=== PATIENT | male | born 1985 | race African-American/Black ===

== ENCOUNTER 2020-02-21 16:14 | Emergency (ER) | payer MEDICAID ==
[~2020-02-21] VITALS: Ht 177.8 cm; Wt 77.1 kg
[~2020-02-21 16:14] MED LIST: ASPI-247
[2020-02-21] MEDS ORDERED: ASPirin 81 mg TAB PO ONE (16:30)
[2020-02-21] MEDS ORDERED: ONDANSETRON HCL 4 MG/2 ML VIAL IV ONE ×2 (16:30→20:30)
[2020-02-21] MEDS ORDERED: MORPHINE SULFATE 4 MG/ML SYR/VIAL IV ONE ×2 (16:30→20:30)
[2020-02-21 17:22] LABS: Basophils # (auto) 0 10 ^3/uL (0-0.2); Basophils % (auto) 0.7 % (0.0-2.0); Eosinophils # (auto) 0 10 ^3/uL (0-0.8); Eosinophils % (auto) 0.2 % (0.0-7.0); Hemoglobin 14.1 g/dL (13.5-17.5); Lymphocytes # (auto) 1.1 10 ^3/uL (0.4-5.4); Lymphocytes % (auto) 24.3 % (10.0-50.0); Mean Corpuscular Hemoglobin 29.2 pg (28.0-32.0); Mean Corpuscular Hgb Conc. 32.8 g/dL (32.0-36.0); Mean Corpuscular Volume 89.1 fL (80.0-100.0); Monocytes # (auto) 0.5 10 ^3/uL (0-1.3); Monocytes % (auto) 11.9 % (0.0-12.0); Neutrophils # (auto) 2.8 10 ^3/uL (1.6-8.6); Neutrophils % (auto) 62.9 % (37.0-80.0); Nucleated Red Blood Cells % 0.1 %; Platelet Count (auto) 190 10^3/uL (140-450); Red Blood Cells 4.83 10^6/uL (4.5-5.90); Red Cell Distribution Width 13.6 % (11.8-14.3); White Blood Cell 4.5 10^3/uL (4.4-10.8)
[2020-02-21 17:37] LABS: INR 1.13 (0.9-1.15); Partial Thromboplastin Time 25.4 sec (23.64-32.05)
[2020-02-21 17:41] LABS: Albumin 4.1 g/dL (3.4-5.0); Anion Gap 6 (5-15); Blood Urea Nitrogen 5 mg/dL (7-18); Calcium 8.6 mg/dL (8.5-10.1); Carbon Dioxide 26 mmol/L (21-32); Chloride 104 mmol/L (98-107); Glucose 122 mg/dL (74-106); Potassium 3.3 mmol/L (3.5-5.1); Sodium 136 mmol/L (136-145)
[2020-02-21 17:47] LABS: Alanine Aminotransferase 13 U/L (16-61); Alkaline Phosphatase 65 U/L (45-117); Aspartate Aminotransferase 9 U/L (15-37); Bilirubin, Total 0.8 mg/dL (0.2-1.0); GFR African American 111 mL/min; GFR Non-African American 92 mL/min; Total Protein 7.5 g/dL (6.4-8.2)
[2020-02-21] MEDS ORDERED: IOHEXOL 350 MG/ML 100ML IJ ONE (17:59)
[2020-02-21] MEDS ORDERED: HYDROmorphone HCL 2 MG/ML VL IV ONE (18:00)
[2020-02-21] MEDS ORDERED: SODIUM CHLORIDE 0.9% 1,000 ML IV ONE (18:12)
[2020-02-21] MEDS ORDERED: POTASSIUM CHL 20MEQ/100ML 100 ML IV ONE (18:15)
[2020-02-21 20:16] LABS: Urine WBC None Seen /hpf (0 - 3)
[2020-02-21 20:59] LABS: Urine Bacteria NONE SEEN /hpf (None Seen); Urine Blood Negative /uL (Negative); Urine Specific Gravity > 1.050 (1.001-1.035)
[2020-02-21 21:00] LABS: Alcohol, Urine < 3.0 mg/dL (0-10); Amphetamine Screen, Urine NEGATIVE (NEGATIVE); Barbiturate Scree,Urine NEGATIVE (NEGATIVE); Benzodiazephine Screen, Urine NEGATIVE (NEGATIVE); Cannabinoid Screen, Urine NEGATIVE (NEGATIVE); Cocaine Screen, Urine NEGATIVE (NEGATIVE); Opiate Scree,Urine POSITIVE (NEGATIVE); Phencyclidine Screen, Urine NEGATIVE (NEGATIVE)
[2020-02-21] MEDS ORDERED: LORazepam 0.5 MG TAB PO ONE (23:30)
[2020-02-21] MEDS ORDERED: LORazepam 2MG/ML-1ML VIAL IV ONE (23:45)
[2020-02-22] MEDS ORDERED: LORazepam 0.5 MG TAB PO ONE ×2 (09:45→18:45)
[2020-02-22] MEDS: ASPirin 81 mg TAB PO SCH (10:17)
[2020-02-22] MEDS ORDERED: KETOROLAC TROMETH 30 MG/ML 1ML VIAL IV ONE (14:15)
[2020-02-22] MEDS: ACETAMINOPHEN 325 MG TAB PO PRN (22:03)
[2020-02-23] MEDS: ACETAMINOPHEN 325 MG TAB PO PRN (08:10)
[2020-02-23] MEDS: ASPirin 81 mg TAB PO SCH (09:36)
[2020-02-23] MEDS ORDERED: LORazepam 2MG/ML-1ML VIAL IV ONE ×2 (12:30→20:00)
[2020-02-23] MEDS ORDERED: KETOROLAC TROMETH 30 MG/ML 1ML VIAL IV ONE (12:30)
[2020-02-23] MEDS ORDERED: OLANZapine 5 MG TAB PO ONE (12:30)
[2020-02-24] MEDS ORDERED: ZOLPIDEM TARTRATE 5 MG TAB PO ONE (02:45)
[2020-02-24] MEDS ORDERED: LORazepam 2MG/ML-1ML VIAL IV ONE (08:15)
[2020-02-24] MEDS: ACETAMINOPHEN 325 MG TAB PO PRN (10:40)
[2020-02-24] MEDS: ASPirin 81 mg TAB PO SCH (10:40)
[2020-02-24] MEDS ORDERED: LORazepam 0.5 MG TAB PO ONE ×2 (10:45→15:00)
[2020-02-24] MEDS ORDERED: LORazepam 0.5 MG TAB PO PRN (15:00)
[2020-02-24 19:30] VITALS: BP 142/74
== END 2020-02-24 20:15 ==
LOC: ER 16:14 → EDBD 16:14 → ER 02-24 20:15
DX: R07.89 Other chest pain (principal); R45.851 Suicidal ideations; E87.6 Hypokalemia; F41.9 Anxiety disorder, unspecified; Z91.19 Patient's noncompliance with other medical treatment and regimen; G89.4 Chronic pain syndrome; F11.20 Opioid dependence, uncomplicated
CPT/HCPCS: 36415; 71045; 71260; 74177; 80053; 80307; 80320; 81001; 83880; 84443; 84484; 85025; 85610; 85730; 93005; 96365; 96366; 96375; 96376; 99285; J1170; J1885; J2060; J2270; J2405; J3480; J7030; U0003

== ENCOUNTER 2020-05-28 11:49 | Inpatient (IN) | payer MEDICAID ==
[~2020-05-28] VITALS: Ht 175.3 cm; Wt 84.0 kg
[2020-05-28] MEDS ORDERED: ASPirin 81 mg TAB PO ONE ×2 (12:30→13:15)
[2020-05-28] MEDS ORDERED: SODIUM CHLORIDE 0.9% 1,000 ML IV ONE (13:06)
[2020-05-28] MEDS ORDERED: ONDANSETRON HCL 4 MG/2 ML VIAL IV ONE (13:15)
[2020-05-28] MEDS ORDERED: NITROGLYCERIN 0.4 MG SL TAB SL ONE (13:15)
[2020-05-28] MEDS ORDERED: MORPHINE SULFATE 4 MG/ML SYR/VIAL IV ONE (13:15)
[2020-05-28 13:45] LABS: Basophils # (auto) 0 10 ^3/uL (0-0.2); Eosinophils # (auto) 0 10 ^3/uL (0-0.8); Eosinophils % (auto) 0.1 % (0.0-7.0); Hematocrit 44.7 % (41.0-53.0); Hemoglobin 14.6 g/dL (13.5-17.5); Lymphocytes % (auto) 30.2 % (10.0-50.0); Mean Corpuscular Hemoglobin 29.2 pg (28.0-32.0); Mean Corpuscular Hgb Conc. 32.6 g/dL (32.0-36.0); Mean Corpuscular Volume 89.6 fL (80.0-100.0); Monocytes # (auto) 0.4 10 ^3/uL (0-1.3); Monocytes % (auto) 11.7 % (0.0-12.0); Neutrophils # (auto) 1.8 10 ^3/uL (1.6-8.6); Nucleated Red Blood Cells % 0.1 %; Platelet Count (auto) 192 10^3/uL (140-450); Red Blood Cells 4.99 10^6/uL (4.5-5.90); Red Cell Distribution Width 14.1 % (11.8-14.3); White Blood Cell 3.2 10^3/uL (4.4-10.8)
[2020-05-28 13:59] LABS: INR 1.19 (0.9-1.15); Partial Thromboplastin Time 29.5 sec (23.0-31.2)
[2020-05-28 14:01] LABS: Anion Gap 6 (5-15); Blood Urea Nitrogen 9 mg/dL (7-18); Calcium 8.7 mg/dL (8.5-10.1); Carbon Dioxide 28 mmol/L (21-32); Chloride 106 mmol/L (98-107); Glucose 61 mg/dL (74-106); Potassium 3.8 mmol/L (3.5-5.1); Sodium 140 mmol/L (136-145)
[2020-05-28 14:06] LABS: Alanine Aminotransferase 14 U/L (16-61); Alkaline Phosphatase 95 U/L (45-117); Aspartate Aminotransferase 13 U/L (15-37); BUN/Creatinine Ratio 9.6; Bilirubin, Total 0.7 mg/dL (0.2-1.0); GFR African American 120 mL/min; GFR Non-African American 99 mL/min; Total Protein 7.7 g/dL (6.4-8.2)
[2020-05-28 14:17] LABS: Urine Bacteria NONE SEEN /hpf (None Seen); Urine Blood Negative /uL (Negative); Urine Specific Gravity 1.008 (1.001-1.035); Urine WBC <1 /hpf (0 - 3)
[2020-05-28 14:32] LABS: Alcohol, Urine < 3.0 mg/dL (0-10); Amphetamine Screen, Urine NEGATIVE (NEGATIVE); Barbiturate Scree,Urine NEGATIVE (NEGATIVE); Benzodiazephine Screen, Urine NEGATIVE (NEGATIVE); Cannabinoid Screen, Urine NEGATIVE (NEGATIVE); Cocaine Screen, Urine NEGATIVE (NEGATIVE); Opiate Scree,Urine NEGATIVE (NEGATIVE); Phencyclidine Screen, Urine NEGATIVE (NEGATIVE)
[2020-05-28] MEDS ORDERED: IOHEXOL 350 MG/ML 100ML IJ ONE ×2 (14:37→20:38)
[2020-05-28] MEDS ORDERED: HYDROcodone-ACET 10/325MG TAB PO PRN (16:45)
[2020-05-28] MEDS ORDERED: NITROGLYCERIN 0.4 MG SL TAB SL PRN (16:45)
[2020-05-28] MEDS ORDERED: REGADENOSON 0.4 MG/5 ML SYRG IV ONE (18:00)
[2020-05-28] MEDS: MORPHINE SULF INJ 2 MG/ML SYRINGE 1ML IV PRN ×3 (20:04→22:13)
[2020-05-28] MEDS: ONDANSETRON HCL 4 MG/2 ML VIAL IV PRN (20:04)
[2020-05-28 20:21] LABS: Cholesterol 146 mg/dL (< 200); HDL Cholesterol 37 mg/dL (40-59); LDL Cholesterol 93 mg/dL (< 100); Triglycerides 115 mg/dL (< 150)
--- NOTE | 2020-05-28 23:45 | NUR ---
Telemetry admit from [facility] admitted to Telemetry unit after SBAR received. Patient oriented to Oli grier RN, unit, room 214, bed B, and unit policies regarding patient care and visiting hours. Patient now on continuous telemetry monitoring, tele box #42 and telemetry reading on arrival to unit is SR 65. Patient VS taken, weighed by bedscale and encouraged to call if they need something. All questions and concerns addressed, patient verbalized understanding.
[2020-05-28 23:47] VITALS: BP 134/77
[2020-05-29 00:06] VITALS: BP 134/77
[2020-05-29] MEDS: MORPHINE SULF INJ 2 MG/ML SYRINGE 1ML IV PRN ×2 (03:32→07:17)
[2020-05-29 05:30] VITALS: BP 127/92
[2020-05-29] MEDS ORDERED: ADENOSINE 71 MG in GIVE UN-DILUTED 0 ML IV STA (08:09)
--- NOTE | 2020-05-29 08:20 | NUR ---
Pt taken to stress lab for stress test.
[2020-05-29 09:00] VITALS: BP 119/71
[2020-05-29] MEDS: ONDANSETRON HCL 4 MG/2 ML VIAL IV PRN (09:18)
--- NOTE | 2020-05-29 09:18 | NUR ---
Notified by nuclear medicine patient is having nausea and vomiting. Reviewed patient eMar and pulled Zofran as ordered and administered to patient. Called primary RN Grace and notified her of patients condition and the medication given.
[2020-05-29 17:00] VITALS: BP 117/75
[2020-05-29] MEDS ORDERED: ACETAMINOPHEN 325 MG TAB PO PRN (17:15)
--- NOTE | 2020-05-29 17:34 | NUR ---
Pain Pt reported headache 02/01, pt refused norco or morphine, pt requested Tylenol, pt medicated as order, will continue to monitor pt.
[2020-05-29] MEDS ORDERED: ACETAMINOPHEN 500 MG TAB PO PRN (18:15)
--- NOTE | 2020-05-29 19:30 | NUR ---
PATIENT LEFT AMA CHARGE NURSE AND DR PINO INFORMED. IV CATHERS REMOVED FROM RIGHT FOREARM AND LEFT FOREARM. TELE BOX REMOVED AND BULLETED TO TELE MONITOR TECHS.
== END 2020-05-29 19:30 | disposition left against medical advice (07) | DRG 203 ==
LOC: ER 11:49 → TELE 11:50 → TELE-CENTR 23:13
PROVIDERS: ADMIT Internal Medicine; ATTEND Internal Medicine
DX: M94.0 Chondrocostal junction syndrome [Tietze] (principal); I10 Essential (primary) hypertension; F17.210 Nicotine dependence, cigarettes, uncomplicated; F12.90 Cannabis use, unspecified, uncomplicated; I72.3 Aneurysm of iliac artery; Z53.29 Procedure and treatment not carried out because of patient's decision for other reasons; K80.20 Calculus of gallbladder without cholecystitis without obstruction; Z86.79 Personal history of other diseases of the circulatory system; Z79.899 Other long term (current) drug therapy
CPT/HCPCS: 36415; 71046; 71275; 74177; 78452; 80053; 80061; 80307; 81001; 84443; 84484; 85025; 85610; 85730; 93005; 93017; 93306; G0378; J0153; J2405

== ENCOUNTER 2021-02-15 16:06 | Emergency (ER) | payer MEDICAID ==
[~2021-02-15] VITALS: Ht 175.3 cm; Wt 90.3 kg
[2021-02-15 16:09] VITALS: BP 142/89
[2021-02-15 16:56] LABS: Urine Bacteria NONE SEEN /hpf (None Seen); Urine Blood Negative /uL (Negative); Urine Specific Gravity 1.006 (1.001-1.035); Urine WBC <1 /hpf (0 - 3)
== END 2021-02-15 23:52 | disposition home or self-care (01) ==
LOC: ER 16:06
DX: F41.9 Anxiety disorder, unspecified (principal); K21.9 Gastro-esophageal reflux disease without esophagitis; M54.2 Cervicalgia; F17.210 Nicotine dependence, cigarettes, uncomplicated; I10 Essential (primary) hypertension; Z90.49 Acquired absence of other specified parts of digestive tract
CPT/HCPCS: 70360; 71046; 81001

== ENCOUNTER 2021-04-17 19:57 | Emergency (ER) | payer MEDICAID ==
[~2021-04-17] VITALS: Ht 175.3 cm; Wt 86.2 kg
[2021-04-17 19:57] VITALS: BP 130/83
== END 2021-04-18 02:50 | disposition left against medical advice (07) ==
LOC: ER 19:57
DX: R07.89 Other chest pain (principal); Z53.21 Procedure and treatment not carried out due to patient leaving prior to being seen by health care provider
CPT/HCPCS: 71045; 93005

== ENCOUNTER 2021-05-02 18:41 | Emergency (ER) | payer MEDICAID ==
[~2021-05-02] VITALS: Ht 175.3 cm; Wt 86.2 kg
[2021-05-02 18:41] VITALS: BP 138/83
[2021-05-02 20:19] LABS: Basophils # (auto) 0 10 ^3/uL (0-0.2); Basophils % (auto) 0.2 % (0.0-2.0); Eosinophils # (auto) 0 10 ^3/uL (0-0.8); Eosinophils % (auto) 0.1 % (0.0-7.0); Hematocrit 44.9 % (41.0-53.0); Hemoglobin 15.1 g/dL (13.5-17.5); Lymphocytes # (auto) 1.1 10 ^3/uL (0.4-5.4); Lymphocytes % (auto) 26.2 % (10.0-50.0); Mean Corpuscular Hemoglobin 29.8 pg (28.0-32.0); Mean Corpuscular Hgb Conc. 33.7 g/dL (32.0-36.0); Mean Corpuscular Volume 88.4 fL (80.0-100.0); Monocytes # (auto) 0.4 10 ^3/uL (0-1.3); Monocytes % (auto) 8.9 % (0.0-12.0); Neutrophils # (auto) 2.8 10 ^3/uL (1.6-8.6); Neutrophils % (auto) 64.6 % (37.0-80.0); Red Blood Cells 5.08 10^6/uL (4.5-5.90); Red Cell Distribution Width 14.5 % (11.8-14.3); White Blood Cell 4.3 10^3/uL (4.4-10.8)
[2021-05-02 20:44] LABS: Albumin 3.7 g/dL (3.4-5.0); Anion Gap 3 (5-15); Blood Urea Nitrogen 14 mg/dL (7-18); Calcium 8.7 mg/dL (8.5-10.1); Carbon Dioxide 28 mmol/L (21-32); Chloride 107 mmol/L (98-107); Glucose 91 mg/dL (74-106); Potassium 3.7 mmol/L (3.5-5.1); Sodium 138 mmol/L (136-145)
[2021-05-02 20:50] LABS: Alanine Aminotransferase 17 U/L (16-61); Alkaline Phosphatase 84 U/L (45-117); Aspartate Aminotransferase 18 U/L (15-37); Bilirubin, Total 0.6 mg/dL (0.2-1.0); GFR African American 111 mL/min; GFR Non-African American 91 mL/min; Total Protein 7.6 g/dL (6.4-8.2)
== END 2021-05-02 18:50 | disposition left against medical advice (07) ==
LOC: ER 18:45
DX: R07.89 Other chest pain (principal); I10 Essential (primary) hypertension; F12.10 Cannabis abuse, uncomplicated; F14.10 Cocaine abuse, uncomplicated; Z86.73 Personal history of transient ischemic attack (TIA), and cerebral infarction without residual deficits; Z98.61 Coronary angioplasty status; Z53.29 Procedure and treatment not carried out because of patient's decision for other reasons
CPT/HCPCS: 36415; 71045; 80053; 83880; 84484; 85025; 93005

== ENCOUNTER 2021-05-22 19:38 | Emergency (ER) | payer MEDICAID ==
[~2021-05-22] VITALS: Ht 175.3 cm; Wt 81.6 kg
[2021-05-22 20:58] LABS: Basophils # (auto) 0 10 ^3/uL (0-0.2); Basophils % (auto) 0.6 % (0.0-2.0); Eosinophils # (auto) 0 10 ^3/uL (0-0.8); Eosinophils % (auto) 0.2 % (0.0-7.0); Hematocrit 46.1 % (41.0-53.0); Hemoglobin 15.4 g/dL (13.5-17.5); Lymphocytes # (auto) 0.7 10 ^3/uL (0.4-5.4); Lymphocytes % (auto) 13.6 % (10.0-50.0); Mean Corpuscular Hemoglobin 29.7 pg (28.0-32.0); Mean Corpuscular Hgb Conc. 33.5 g/dL (32.0-36.0); Mean Corpuscular Volume 88.7 fL (80.0-100.0); Monocytes # (auto) 0.4 10 ^3/uL (0-1.3); Monocytes % (auto) 7.1 % (0.0-12.0); Neutrophils % (auto) 78.5 % (37.0-80.0); Nucleated Red Blood Cells % 0.1 %; Red Cell Distribution Width 14.1 % (11.8-14.3); White Blood Cell 5.2 10^3/uL (4.4-10.8)
[2021-05-22 21:13] LABS: Albumin 3.9 g/dL (3.4-5.0); Anion Gap 6 (5-15); Blood Urea Nitrogen 10 mg/dL (7-18); Calcium 9.3 mg/dL (8.5-10.1); Carbon Dioxide 28 mmol/L (21-32); Chloride 103 mmol/L (98-107); Glucose 79 mg/dL (74-106); Potassium 3.8 mmol/L (3.5-5.1); Sodium 137 mmol/L (136-145)
[2021-05-22 21:16] LABS: Alanine Aminotransferase 18 U/L (16-61); Alkaline Phosphatase 102 U/L (45-117); Aspartate Aminotransferase 16 U/L (15-37); Bilirubin, Total 0.6 mg/dL (0.2-1.0); GFR African American 111 mL/min; GFR Non-African American 91 mL/min; Total Protein 7.8 g/dL (6.4-8.2)
[2021-05-23 02:50] VITALS: BP 142/78
== END 2021-05-23 03:59 | disposition home or self-care (01) ==
LOC: ER 19:38
DX: R07.89 Other chest pain (principal); K80.20 Calculus of gallbladder without cholecystitis without obstruction; I10 Essential (primary) hypertension; I25.10 Atherosclerotic heart disease of native coronary artery without angina pectoris; Z98.890 Other specified postprocedural states; Z95.4 Presence of other heart-valve replacement
CPT/HCPCS: 36415; 71045; 80053; 83880; 84484; 85025; 93005

== ENCOUNTER 2021-08-06 21:12 | Emergency (ER) | payer MEDICAID ==
[~2021-08-06] VITALS: Ht 175.3 cm; Wt 87.5 kg
[2021-08-06] MEDS ORDERED: ASPirin 81 mg TAB PO ONE (21:30)
[2021-08-06 22:57] LABS: Basophils # (auto) 0.1 10 ^3/uL (0-0.2); Basophils % (auto) 1.7 % (0.0-2.0); Eosinophils # (auto) 0.3 10 ^3/uL (0-0.8); Eosinophils % (auto) 6.6 % (0.0-7.0); Hematocrit 43.4 % (41.0-53.0); Hemoglobin 14.1 g/dL (13.5-17.5); Lymphocytes # (auto) 0.4 10 ^3/uL (0.4-5.4); Lymphocytes % (auto) 8.9 % (10.0-50.0); Mean Corpuscular Hgb Conc. 32.6 g/dL (32.0-36.0); Mean Corpuscular Volume 88.9 fL (80.0-100.0); Monocytes # (auto) 0.2 10 ^3/uL (0-1.3); Monocytes % (auto) 4.4 % (0.0-12.0); Neutrophils # (auto) 3.5 10 ^3/uL (1.6-8.6); Neutrophils % (auto) 78.4 % (37.0-80.0); Nucleated Red Blood Cells % 0.1 %; Red Blood Cells 4.88 10^6/uL (4.5-5.90); Red Cell Distribution Width 14.2 % (11.8-14.3); White Blood Cell 4.4 10^3/uL (4.4-10.8)
[2021-08-06 23:15] LABS: Albumin 3.8 g/dL (3.4-5.0); BUN/Creatinine Ratio 13.7; Potassium 3.4 mmol/L (3.5-5.1)
[2021-08-06 23:20] LABS: Bilirubin, Total 0.6 mg/dL (0.2-1.0); Total Protein 7.5 g/dL (6.4-8.2)
[2021-08-07 02:00] VITALS: BP 131/89
[2021-08-07] MEDS: ACETAMINOPHEN 500 MG TAB PO ONE ×2 (02:16→02:18)
== END 2021-08-07 02:15 | disposition home or self-care (01) ==
LOC: ER 21:12
DX: R07.89 Other chest pain (principal); I10 Essential (primary) hypertension; I25.10 Atherosclerotic heart disease of native coronary artery without angina pectoris
CPT/HCPCS: 36415; 71046; 80053; 84484; 85025; 93005

== ENCOUNTER 2021-08-25 13:02 | Emergency (ER) | payer MEDICAID ==
[~2021-08-25] VITALS: Ht 175.3 cm; Wt 86.2 kg
[2021-08-25 13:08] VITALS: BP 128/90
[2021-08-25] MEDS ORDERED: ASPirin 81 mg TAB PO ONE (14:00)
[2021-08-25] MEDS ORDERED: SODIUM CHLORIDE 0.9% 1,000 ML IV ONE (14:00)
[2021-08-25 14:48] LABS: Basophils # (auto) 0 10 ^3/uL (0-0.2); Basophils % (auto) 0.2 % (0.0-2.0); Eosinophils # (auto) 0 10 ^3/uL (0-0.8); Eosinophils % (auto) 0.3 % (0.0-7.0); Hematocrit 43.2 % (41.0-53.0); Hemoglobin 14.1 g/dL (13.5-17.5); Lymphocytes # (auto) 0.9 10 ^3/uL (0.4-5.4); Lymphocytes % (auto) 31.9 % (10.0-50.0); Mean Corpuscular Hgb Conc. 32.7 g/dL (32.0-36.0); Mean Corpuscular Volume 88.7 fL (80.0-100.0); Monocytes # (auto) 0.3 10 ^3/uL (0-1.3); Neutrophils # (auto) 1.6 10 ^3/uL (1.6-8.6); Neutrophils % (auto) 56.6 % (37.0-80.0); Nucleated Red Blood Cells % 0.2 %; Red Blood Cells 4.87 10^6/uL (4.5-5.90); Red Cell Distribution Width 14.1 % (11.8-14.3); White Blood Cell 2.8 10^3/uL (4.4-10.8)
[2021-08-25 15:02] LABS: INR 1.03 (0.9-1.15); Partial Thromboplastin Time 27.1 sec (23.6-33.0)
[2021-08-25 15:08] LABS: Albumin 3.7 g/dL (3.4-5.0); Calcium 8.4 mg/dL (8.5-10.1); Magnesium 2.5 mg/dL (1.6-2.6); Potassium 3.9 mmol/L (3.5-5.1)
[2021-08-25 15:15] LABS: BUN/Creatinine Ratio 6.4; Bilirubin, Total 0.6 mg/dL (0.2-1.0); Total Protein 7.6 g/dL (6.4-8.2)
== END 2021-08-25 18:31 | disposition home or self-care (01) ==
LOC: ER 13:02
DX: R07.89 Other chest pain (principal); I25.10 Atherosclerotic heart disease of native coronary artery without angina pectoris; R79.1 Abnormal coagulation profile; I10 Essential (primary) hypertension
CPT/HCPCS: 36415; 71046; 80053; 83735; 84443; 84484; 85025; 85379; 85610; 85730; 93005; 93971

== ENCOUNTER 2021-12-06 10:19 | Emergency (ER) | payer MEDICAID ==
[~2021-12-06] VITALS: Ht 175.3 cm; Wt 72.6 kg
[2021-12-06] MEDS ORDERED: IOHEXOL 300 MG/ML 100ML BOTTLE IJ ONE (11:20)
[2021-12-06] MEDS ORDERED: IOHEXOL 350 MG/ML 100ML IJ ONE (11:32)
[2021-12-06] MEDS ORDERED: ONDANSETRON HCL 4 MG/2 ML VIAL IV ONE (11:45)
[2021-12-06] MEDS ORDERED: MORPHINE SULFATE 4 MG/ML SYR/VIAL IV ONE (11:45)
[2021-12-06 11:53] LABS: Basophils # (auto) 0 10 ^3/uL (0-0.2); Basophils % (auto) 0.2 % (0.0-2.0); Eosinophils # (auto) 0 10 ^3/uL (0-0.8); Eosinophils % (auto) 0.2 % (0.0-7.0); Hematocrit 42.1 % (41.0-53.0); Lymphocytes # (auto) 1.2 10 ^3/uL (0.4-5.4); Lymphocytes % (auto) 22.6 % (10.0-50.0); Mean Corpuscular Hemoglobin 29.6 pg (28.0-32.0); Mean Corpuscular Hgb Conc. 33.3 g/dL (32.0-36.0); Mean Corpuscular Volume 88.7 fL (80.0-100.0); Monocytes # (auto) 0.5 10 ^3/uL (0-1.3); Monocytes % (auto) 9.5 % (0.0-12.0); Neutrophils # (auto) 3.6 10 ^3/uL (1.6-8.6); Neutrophils % (auto) 67.5 % (37.0-80.0); Nucleated Red Blood Cells % 0.1 %; Red Blood Cells 4.74 10^6/uL (4.5-5.90); Red Cell Distribution Width 13.9 % (11.8-14.3); White Blood Cell 5.4 10^3/uL (4.4-10.8)
[2021-12-06 13:18] LABS: Albumin 3.9 g/dL (3.4-5.0); BUN/Creatinine Ratio 8.7; Calcium 9.1 mg/dL (8.5-10.1); Potassium 4.1 mmol/L (3.5-5.1)
[2021-12-06 13:23] LABS: Bilirubin, Total 0.6 mg/dL (0.2-1.0); Total Protein 7.3 g/dL (6.4-8.2)
[2021-12-06 14:00] VITALS: BP 98/51
[2021-12-06 14:37] LABS: INR 1.05 (0.9-1.15); Partial Thromboplastin Time 27.1 sec (23.6-33.0)
[2021-12-06] MEDS ORDERED: ENOXAPARIN SOD 80 MG/0.8ML SYRINGE SC ONE (17:00)
[2021-12-06] MEDS ORDERED: HYDROcodone-ACET 10/325MG TAB PO ONE (17:45)
== END 2021-12-06 17:45 | disposition home or self-care (01) ==
LOC: ER 10:19
DX: I72.3 Aneurysm of iliac artery (principal); F12.10 Cannabis abuse, uncomplicated; F14.10 Cocaine abuse, uncomplicated; I10 Essential (primary) hypertension
CPT/HCPCS: 36415; 71045; 74177; 80053; 84484; 85025; 85610; 85730; 93005; 96372; 96374; 96375; 99285; J1650; J2270; J2405; Q9967

== ENCOUNTER 2023-10-02 12:15 | Emergency (ER) | payer MEDICAID, OTHER ==
[~2023-10-02] VITALS: Ht 162.6 cm; Wt 83.4 kg
[2023-10-02] MEDS ORDERED: ACET30TA15 PO (14:46)
[2023-10-02] MEDS ORDERED: AMOX500T3 PO (14:46)
[2023-10-02 14:50] VITALS: BP 152/113; PULSE 95; RESP 18; TEMP 97.8; O2SAT 98
== END 2023-10-02 14:47 | disposition home or self-care (01) ==
LOC: ER 12:15
DX: K02.9 Dental caries, unspecified (principal); K04.7 Periapical abscess without sinus; I10 Essential (primary) hypertension; I25.10 Atherosclerotic heart disease of native coronary artery without angina pectoris; Z79.2 Long term (current) use of antibiotics; Z79.899 Other long term (current) drug therapy

== ENCOUNTER 2023-11-23 13:26 | Emergency (ER) | payer OTHER ==
[~2023-11-23] VITALS: Ht 175.3 cm; Wt 86.2 kg
[~2023-11-23 13:26] MED LIST changes: +ACET30TA15 PO; +AMOX500T3 PO; -ASPI-247
[2023-11-23 14:41] VITALS: BP 142/86; PULSE 95; RESP 18; TEMP 97.5; O2SAT 98
[2023-11-23] MEDS ORDERED: PROM1SOL4 PO (15:17)
[2023-11-23] MEDS ORDERED: IBUP-1456 PO (15:17)
[2023-11-23] MEDS ORDERED: CLIN300C70 PO (15:17)
== END 2023-11-23 15:30 | disposition home or self-care (01) ==
LOC: ER 13:26
DX: K04.7 Periapical abscess without sinus (principal); J06.9 Acute upper respiratory infection, unspecified; I10 Essential (primary) hypertension; I25.10 Atherosclerotic heart disease of native coronary artery without angina pectoris; Z79.2 Long term (current) use of antibiotics; Z79.1 Long term (current) use of non-steroidal anti-inflammatories (NSAID); Z79.899 Other long term (current) drug therapy

== ENCOUNTER 2023-12-25 15:07 | Emergency (ER) | payer MEDICAID, OTHER ==
[~2023-12-25] VITALS: Ht 175.3 cm; Wt 81.8 kg
[~2023-12-25 15:07] MED LIST changes: +CLIN1CAP70 PO; +IBUP-1456 PO; +PROM1SOL4 PO
[2023-12-25 15:32] VITALS: BP 153/93; PULSE 95; RESP 18; O2SAT 95
[2023-12-25] MEDS ORDERED: MONT-8 PO (16:20)
[2023-12-25] MEDS ORDERED: HYDR-4902 PO (16:20)
[2023-12-25] MEDS ORDERED: PROM1SOL4 PO (16:20)
== END 2023-12-25 20:01 | disposition home or self-care (01) ==
LOC: ER 15:07
DX: K80.20 Calculus of gallbladder without cholecystitis without obstruction (principal); J06.9 Acute upper respiratory infection, unspecified; I10 Essential (primary) hypertension; F12.10 Cannabis abuse, uncomplicated; F14.10 Cocaine abuse, uncomplicated

== ENCOUNTER 2024-02-01 09:57 | Emergency (ER) | payer OTHER ==
[~2024-02-01] VITALS: Ht 175.3 cm; Wt 83.0 kg
[~2024-02-01 09:57] MED LIST changes: +HYDR-4902 PO; +MONT-8 PO
[2024-02-01] MEDS: KETOROLAC TROMETH 60MG/2ML VIAL IM ONE (10:53)
[2024-02-01 11:19] VITALS: BP 142/90; PULSE 81; RESP 14; TEMP 98.2; O2SAT 98
[2024-02-01] MEDS ORDERED: BACL10TA PO (11:20)
== END 2024-02-01 11:22 | disposition home or self-care (01) ==
LOC: ER 09:57
DX: S29.012A Strain of muscle and tendon of back wall of thorax, initial encounter (principal); K04.7 Periapical abscess without sinus; I10 Essential (primary) hypertension; F17.210 Nicotine dependence, cigarettes, uncomplicated; F12.10 Cannabis abuse, uncomplicated; F14.10 Cocaine abuse, uncomplicated; X58.XXXA Exposure to other specified factors, initial encounter; Y93.89 Activity, other specified; Y92.89 Other specified places as the place of occurrence of the external cause; Y99.8 Other external cause status
CPT/HCPCS: 96372; 99283; J1885

== ENCOUNTER 2024-02-09 11:53 | Emergency (ER) | payer OTHER ==
[~2024-02-09] VITALS: Ht 175.3 cm; Wt 85.1 kg
[~2024-02-09 11:53] MED LIST changes: +BACL10TA PO
[2024-02-09 12:49] LABS: Urine Bacteria None Seen /hpf (None Seen)
[2024-02-09 13:16] LABS: Urine Blood Negative /uL (Negative); Urine Clarity Clear (Clear); Urine Color Yellow (Yellow); Urine Mucus FEW (None Seen); Urine Protein, UAD 1+ (Negative); Urine Urobilinogen Normal (Negative); Urine WBC <1 /hpf (0 - 3); Urine pH 6.5 (5.0-9.0)
[2024-02-09 13:43] LABS: Basophils # (auto) 0 10 ^3/uL (0-0.2); Basophils % (auto) 0.1 % (0.0-2.0); Eosinophils # (auto) 0 10 ^3/uL (0-0.8); Hematocrit 42.8 % (41.0-53.0); Hemoglobin 14.1 g/dL (13.5-17.5); Lymphocytes # (auto) 1.9 10 ^3/uL (0.4-5.4); Lymphocytes % (auto) 20.5 % (10.0-50.0); Mean Corpuscular Hemoglobin 30.2 pg (28.0-32.0); Mean Corpuscular Volume 91.4 fL (80.0-100.0); Monocytes # (auto) 0.8 10 ^3/uL (0-1.3); Neutrophils # (auto) 6.6 10 ^3/uL (1.6-8.6); Neutrophils % (auto) 70.4 % (37.0-80.0); Nucleated Red Blood Cells % 0.1 %; Red Blood Cells 4.68 10^6/uL (4.5-5.90); Red Cell Distribution Width 14.6 % (11.8-14.3); White Blood Cell 9.4 10^3/uL (4.4-10.8)
[2024-02-09 13:43] LABS: Urine Specific Gravity > 1.050 (1.001-1.035)
[2024-02-09 14:01] LABS: Alanine Aminotransferase 13 U/L (7-40); Albumin 4.5 g/dL (3.2-4.8); Alkaline Phosphatase 92 U/L (46-116); Anion Gap 3 (5-15); Aspartate Aminotransferase 12 U/L (13-40); BUN/Creatinine Ratio 5.9 (10.0-20.0); Blood Urea Nitrogen 6 mg/dL (9-23); Calcium 9.7 mg/dL (8.5-10.1); Carbon Dioxide 33 mmol/L (20-30); Chloride 106 mmol/L (98-107); Glucose 85 mg/dL (74-106); Potassium 3.9 mmol/L (3.5-5.1); Sodium 142 mmol/L (136-145)
[2024-02-09 14:02] LABS: Bilirubin, Total 0.6 mg/dL (0.2-1.0); Total Protein 6.9 g/dL (5.7-8.2)
[2024-02-09 14:21] LABS: Magnesium 1.7 mg/dL (1.6-2.6)
[2024-02-09] MEDS: IOHEXOL 300 MG/ML 100ML BOTTLE IJ ONE (15:41)
[2024-02-09] MEDS: SODIUM CHLORIDE 0.9% 500 ML IVB ONE (15:44)
[2024-02-09] MEDS: METOCLOPRAMIDE HCL 5MG/ml INJ 2ml VIAL IV ONE (15:45)
[2024-02-09] MEDS: KETOROLAC TROMETH 30 MG/ML 1ML VIAL IV ONE (15:46)
[2024-02-09 15:50] VITALS: BP 132/88; PULSE 70; RESP 16; TEMP 98.9; O2SAT 99
[2024-02-09] MEDS ORDERED: METO-281 PO (16:56)
[2024-02-09] MEDS ORDERED: TRAM50TA2 PO (16:56)
== END 2024-02-09 17:11 | disposition home or self-care (01) ==
LOC: ER 11:53
DX: K80.50 Calculus of bile duct without cholangitis or cholecystitis without obstruction (principal); K80.20 Calculus of gallbladder without cholecystitis without obstruction; R07.89 Other chest pain; I10 Essential (primary) hypertension; I25.10 Atherosclerotic heart disease of native coronary artery without angina pectoris; F17.210 Nicotine dependence, cigarettes, uncomplicated; Z95.828 Presence of other vascular implants and grafts; Z79.1 Long term (current) use of non-steroidal anti-inflammatories (NSAID); Z79.2 Long term (current) use of antibiotics; Z79.899 Other long term (current) drug therapy
CPT/HCPCS: 36415; 71046; 74177; 80053; 81001; 83690; 83735; 85025; 96361; 96374; 96375; 99285; J1885; J2765; J7040; Q9967

== ENCOUNTER 2024-03-17 10:17 | Emergency (ER) | payer OTHER ==
[~2024-03-17] VITALS: Ht 175.3 cm; Wt 86.3 kg
[~2024-03-17 10:17] MED LIST changes: +METO-281 PO; +TRAM50TA2 PO
[2024-03-17 10:37] LABS: Urine Bacteria None Seen /hpf (None Seen)
[2024-03-17 10:50] LABS: Urine Blood Negative /uL (Negative); Urine Clarity Clear (Clear); Urine Color Yellow (Yellow); Urine Mucus FEW (None Seen); Urine Protein, UAD TRACE (Negative); Urine Specific Gravity 1.024 (1.001-1.035); Urine Sperm PRESENT /hpf (None Seen); Urine Urobilinogen Normal (Negative); Urine WBC <1 /hpf (0 - 3); Urine pH 5.5 (5.0-9.0)
[2024-03-17] MEDS: KETOROLAC TROMETH 60MG/2ML VIAL IM ONE (10:51)
[2024-03-17 10:52] VITALS: BP 128/78; PULSE 76; RESP 20; TEMP 97.6; O2SAT 97
[2024-03-17 11:01] LABS: Basophils # (auto) 0 10 ^3/uL (0-0.2); Basophils % (auto) 0.3 % (0.0-2.0); Eosinophils # (auto) 0 10 ^3/uL (0-0.8); Eosinophils % (auto) 0.3 % (0.0-7.0); Hematocrit 40.9 % (41.0-53.0); Hemoglobin 13.5 g/dL (13.5-17.5); Lymphocytes # (auto) 1.2 10 ^3/uL (0.4-5.4); Mean Corpuscular Hemoglobin 30.5 pg (28.0-32.0); Mean Corpuscular Hgb Conc. 33.1 g/dL (32.0-36.0); Mean Corpuscular Volume 92.2 fL (80.0-100.0); Monocytes # (auto) 0.4 10 ^3/uL (0-1.3); Monocytes % (auto) 12.1 % (0.0-12.0); Neutrophils # (auto) 1.7 10 ^3/uL (1.6-8.6); Neutrophils % (auto) 51.3 % (37.0-80.0); Red Blood Cells 4.44 10^6/uL (4.5-5.90); Red Cell Distribution Width 14.3 % (11.8-14.3); White Blood Cell 3.4 10^3/uL (4.4-10.8)
[2024-03-17 11:15] LABS: Alanine Aminotransferase 11 U/L (7-40); Alkaline Phosphatase 76 U/L (46-116); Anion Gap 7 (5-15); Aspartate Aminotransferase 12 U/L (13-40); BUN/Creatinine Ratio 6.9 (10.0-20.0); Blood Urea Nitrogen 7 mg/dL (9-23); Calcium 9.4 mg/dL (8.7-10.4); Carbon Dioxide 23 mmol/L (20-30); Chloride 107 mmol/L (98-107); Glucose 90 mg/dL (74-106); Lipase 30 U/L (12-53); Potassium 3.7 mmol/L (3.5-5.1); Sodium 137 mmol/L (136-145)
[2024-03-17 11:16] LABS: Bilirubin, Total 0.7 mg/dL (0.2-1.0); Total Protein 6.8 g/dL (5.7-8.2)
[2024-03-17] MEDS ORDERED: ZOFR4T PO (12:09)
[2024-03-17] MEDS ORDERED: NAP500T PO (12:09)
== END 2024-03-17 12:50 | disposition home or self-care (01) ==
LOC: ER 10:17
DX: K80.50 Calculus of bile duct without cholangitis or cholecystitis without obstruction (principal); I25.10 Atherosclerotic heart disease of native coronary artery without angina pectoris; I10 Essential (primary) hypertension; F17.210 Nicotine dependence, cigarettes, uncomplicated; F12.10 Cannabis abuse, uncomplicated; Z98.61 Coronary angioplasty status; Z79.899 Other long term (current) drug therapy
CPT/HCPCS: 36415; 76705; 80053; 81001; 83690; 85025; 96372; 99285; J1885

== ENCOUNTER 2024-04-19 11:23 | Emergency (ER) | payer OTHER ==
[~2024-04-19] VITALS: Ht 175.3 cm; Wt 83.7 kg
[~2024-04-19 11:23] MED LIST changes: +NAP500T PO; +ZOFR4T PO
[2024-04-19 12:29] VITALS: BP 140/95; PULSE 98; RESP 20; TEMP 98.5; O2SAT 95
[2024-04-19] MEDS: cefTRIAXone SOD 1,000 MG VL IM ONE (12:54)
[2024-04-19] MEDS: IBUPROFEN 800 MG TAB PO ONE (12:54)
[2024-04-19] MEDS ORDERED: CEPH500C PO (13:20)
[2024-04-19] MEDS ORDERED: PRED20TA2 PO (13:20)
== END 2024-04-19 13:26 | disposition home or self-care (01) ==
LOC: ER 11:23
DX: J03.90 Acute tonsillitis, unspecified (principal); J84.114 Acute interstitial pneumonitis; I10 Essential (primary) hypertension; F17.210 Nicotine dependence, cigarettes, uncomplicated; F12.10 Cannabis abuse, uncomplicated; F14.90 Cocaine use, unspecified, uncomplicated
CPT/HCPCS: 71046; 96372; 99283; J0696

== ENCOUNTER 2024-07-25 09:08 | Emergency (ER) | payer OTHER ==
[~2024-07-25] VITALS: Ht 175.3 cm; Wt 84.8 kg
[~2024-07-25 09:08] MED LIST changes: +CEPH500C PO; +PRED20TA2 PO
[2024-07-25 10:19] LABS: Basophils # (auto) 0 10 ^3/uL (0-0.2); Basophils % (auto) 0.4 % (0.0-2.0); Eosinophils # (auto) 0 10 ^3/uL (0-0.8); Eosinophils % (auto) 0.4 % (0.0-7.0); Hematocrit 42.4 % (41.0-53.0); Hemoglobin 13.8 g/dL (13.5-17.5); Lymphocytes # (auto) 1.4 10 ^3/uL (0.4-5.4); Lymphocytes % (auto) 33.1 % (10.0-50.0); Mean Corpuscular Hemoglobin 29.7 pg (28.0-32.0); Mean Corpuscular Hgb Conc. 32.7 g/dL (32.0-36.0); Mean Corpuscular Volume 90.9 fL (80.0-100.0); Monocytes # (auto) 0.4 10 ^3/uL (0-1.3); Monocytes % (auto) 10.5 % (0.0-12.0); Neutrophils # (auto) 2.3 10 ^3/uL (1.6-8.6); Neutrophils % (auto) 55.6 % (37.0-80.0); Nucleated Red Blood Cells % 0.2 %; Platelet Count (auto) 178 10^3/uL (140-450); Red Blood Cells 4.66 10^6/uL (4.5-5.90); Red Cell Distribution Width 13.9 % (11.8-14.3); White Blood Cell 4.2 10^3/uL (4.4-10.8)
[2024-07-25 10:42] LABS: Carbon Dioxide 29 mmol/L (20-31)
[2024-07-25 10:43] LABS: Calcium 9.5 mg/dL (8.7-10.4)
[2024-07-25 10:48] LABS: BUN/Creatinine Ratio 11.3 (10.0-20.0); Blood Urea Nitrogen 11 mg/dL (9-23); Glucose 60 mg/dL (74-106)
[2024-07-25 11:21] LABS: Anion Gap 5 (5-15); Chloride 106 mmol/L (98-107); Potassium 3.5 mmol/L (3.5-5.1); Sodium 140 mmol/L (136-145)
[2024-07-25] MEDS ORDERED: PANT40TA2 PO (12:26)
[2024-07-25] MEDS: LIDOCAINE VISCOUS 2% 15ML UD PO ONE (12:47)
[2024-07-25] MEDS: MAALOX PLUS or MAALOX 30 ML PO ONE (12:47)
[2024-07-25] MEDS: DONNATAL 5ml ORAL Elix (BELLADONNA ALK-PHENOBARB) PO ONE (12:47)
[2024-07-25 12:48] VITALS: BP 131/93; PULSE 67; RESP 16; TEMP 98; O2SAT 99
== END 2024-07-25 12:50 | disposition home or self-care (01) ==
LOC: ER 09:08
DX: K29.70 Gastritis, unspecified, without bleeding (principal); I10 Essential (primary) hypertension; F17.210 Nicotine dependence, cigarettes, uncomplicated; F12.90 Cannabis use, unspecified, uncomplicated; F15.90 Other stimulant use, unspecified, uncomplicated; Z79.899 Other long term (current) drug therapy; Z98.890 Other specified postprocedural states
CPT/HCPCS: 36415; 80048; 85025

== ENCOUNTER 2024-12-08 09:15 | Emergency (ER) | payer OTHER ==
[~2024-12-08] VITALS: Ht 175.3 cm; Wt 85.7 kg
[~2024-12-08 09:15] MED LIST changes: +PANT40TA2 PO
[2024-12-08 09:40] VITALS: RESP 20; O2SAT 97
--- NOTE | 2024-12-08 10:03 | ED.PDOC ---
GI ASSESSMENT HPI Comments 39-year-old male with PMHx Abdominal Aortic Aneurysm, Gallstones presents with a chief complaint of abdominal pain and back pain. Patient states that his pain is localized to his LUQ, radiates to his back, describes as aching/soreness. Patient states that the pain is made worse after eating. Patient reports that he knows he has gallstones, but still has a gallbladder. Chief Complaint: Flank Pain Time Seen by MD: 09:45 Primary Care Provider: juan Macias Notes: Medications, Allergies Allergies: Coded Allergies: NO KNOWN ALLERGIES (Unverified , 05/02/21) Home Meds Active Scripts Pantoprazole Sodium Sesquihydr (Protonix) 40 Mg Tab, 40 MG PO DAILY for 5 Days, #5 TAB Prov:MARLY CARRERO MD 07/25/24 Prednisone (Prednisone) 20 Mg Tab, 60 MG PO DAILY for 5 Days, #15 TAB Prov:LIANA CUBA 04/19/24 Promethazine-Dm (Promethazine Dm 6.25-15 mg/5Ml) 1 Coreen Coreen, 5 ML PO TID, #150 ML Prov:LIANA CUBA 04/19/24 Cephalexin Monohydrate (Cephalexin) 500 Mg Cap, 1 CAP PO QID, #28 CAP Prov:LIANA CUBA 04/19/24 Ondansetron Odt 4MG Tab (ZOFRAN PO) 4 Mg Tb, 4 MG PO Q8HR PRN, #14 TAB ODT TAB-DISSOLVE IN MOUTH, THEN SWALLOW Prov:RASTA CANTU MD 03/17/24 Naproxen (NAPROSYN TABLET) 500 Mg Tb, 1 TAB PO BID PRN, #20 TAB 1 Refill Prov:RASTA CANTU MD 03/17/24 Tramadol Hcl (Tramadol Hcl) 50 Mg Tab, 50 MG PO BID for 5 Days, #10 TAB Prov:STEPHIE COLE MD 02/09/24 Metoclopramide Hcl (Reglan) 10 Mg Tab, 10 MG PO BID for 15 Days, #30 TAB Prov:STEPHIE COLE MD 02/09/24 Baclofen (Baclofen) 10 Mg Tab, 10 MG PO BID, #20 TAB Prov:LIANA CUAB 02/01/24 Ibuprofen (Ibuprofen) 800 Mg Tab, 1 TAB PO TID, #30 TAB Prov:ROSA ELENAPEGLANDY VIZCAINO 02/01/24 Clindamycin Hcl (Clindamycin Hcl) 300 Mg Cap, 1 CAP PO TID, #30 CAP Prov:ROSA ELENAPEGLANDY VIZCAINO 02/01/24 Promethazine-Dm (Promethazine Dm 6.25-15 mg/5Ml) 1 Coreen Coreen, 5 ML PO TID PRN, #240 ML Prov:ISHMAEL GALINDO MEDICAL SUPERVISOR 12/25/23 Montelukast Sodium (MONTELUKAST SODIUM) 10 Mg Tab, 1 TAB PO DAILY, #30 TAB 5 Refills Prov:ISHMAEL GALINDO MEDICAL SUPERVISOR 12/25/23 Hydrocodone-Acetaminophen (Hydrocodone Bitartrate/AC 5-325 mg) 1 Tab Tab, 1 TAB PO TID PRN, #25 TAB Prov:ISHMAEL GALINDO 12/25/23 Promethazine-Dm (Promethazine Dm 6.25-15 mg/5Ml) 1 Coreen Coreen, 5 ML PO TID, #150 ML Prov:LIANA CUBA 11/23/23 Clindamycin Hcl (Clindamycin Hcl) 300 Mg Cap, 1 CAP PO TID, #30 CAP Prov:LIANA CUBA 11/23/23 Ibuprofen (Ibuprofen) 800 Mg Tab, 1 TAB PO TID, #30 TAB Prov:LIANA CUBA 11/23/23 Acetaminophen W/ Codeine (Codeine/Acetaminophen) 1 Tab Tab, 1 TAB PO TIDPRN PRN for 5 Days, #15 TAB 0 Refills Prov:ALLA SPEAR NP 10/02/23 Amoxicillin Trihydrate (Amoxicillin) 500 Mg Tab, 1 TAB PO BID for 10 Days, #20 TAB 0 Refills Prov:ALLA SPEAR NP 10/02/23 Information Source: Patient Mode of Arrival: Ambulatory Timing: Days Duration: Since onset Prehospital treatment: None Quality: Aching Vomitus: None Stool: Normal Severity: Moderate Recent: None Recent Hx of: None Pain Location: LUQ Associated sign and symptoms: Abdominal Pain Past Medical History PAST MEDICAL HISTORY: CAD, Gallstones, HTN Surgical History: PTCA Surgical History (Other): AORTIC ANEURYSM Family History Family History: Reviewed,noncontributory to illness, Family hx of DM, Family hx of Cancer, Family hx of heart jhonatan Social History Smoker: Cigarettes Alcohol: Denies ETOH Use Drugs: Cocaine, Marijuana Lives In: Home Constitutional: denies: chills, diaphoresis, fatigue, fever, malaise, sweats, weakness, others EENTM: denies: blurred vision, double vision, ear bleeding, ear discharge, ear drainage, ear pain, ear ringing, eye pain, eye redness, hearing loss, mouth pain, mouth swelling, nasal discharge, nose bleeding, nose congestion, nose pain, photophobia, tearing, throat pain, throat swelling, voice changes, others Respiratory: denies: cough, hemoptysis, orthopnea, SOB at rest, shortness of breath, SOB with excertion, stridor, wheezing, others Cardiovascular: denies: chest pain, dizzy spells, diaphoresis, Dyspnea on exertion, edema, irregular heart beat, left arm pain, lightheadedness, palpitations, PND, syncope, others Gastrointestinal: reports: abdominal pain; denies: abdomen distended, blood streaked bowels, constipated, diarrhea, dysphagia, difficulty swallowing, hematemesis, melena, nausea, poor appetite, poor fluid intake, rectal bleeding, rectal pain, vomiting, others Genitourinary: denies: burning, dysuria, flank pain, frequency, hematuria, incontinence, penile discharge, penile sore, pain, testicle pain, testicle swelling, urgency, others Neurological: denies: dizziness, fainting, headache, left sided numbness, left sided weakness, numbness, paresthesia, pre-existing deficit, right sided numbness, right sided weakness, seizure, speech problems, tingling, tremors, weakness, others Musculoskeletal: denies: back pain, gout, joint pain, joint swelling, muscle pain, muscle stiffness, neck pain, others Integumetry: denies: bruises, change in color, change in hair/nails, dryness, laceration, lesions, lumps, rash, wounds, others Allergic/Immunocompromised: denies: Difficulty Healing, Frequent Infections, Hives, Itching, others Hematologic/Lymphatic: denies: anemia, blood clots, easy bleeding, easy bruising, swollen glands, others Endocrine: denies: excessive hunger, excessive sweating, excessive thirst, excessive urination, flushing, intolerance to cold, intolerance to heat, unexplained weight gain, unexplained weight loss, others Psychiatric: denies: anxiety, bipolar disorder, depression, hopeless, panic disorder, schizophrenia, sleepless, suicidal, others All Other Systems: Reviewed and Negative Physical Exam General Appearance: No Apparent Distress, Normal HEENT: Normal ENT Inspection, Pharynx Normal, TMs Normal Neck: Full Range of Motion, Non-Tender, Normal, Normal Inspection Respiratory: Chest Non-Tender, Lungs Clear, No Accessory Muscle Use, No Respiratory Distress, Normal Breath Sounds Cardiovascular: No Edema, No JVD, No Murmur, No Gallop, Normal Peripheral Pulses, Regular Rate/Rhythm Breast Exam: Deferred Gastrointestinal: LUQ, No Organomegaly, No Pulsatile Mass, Normal Bowel Sounds, Soft, Tenderness Genitalia: Deferred Pelvic: Deferred Rectal: Deferred Extremities: No calf tenderness, Normal capillary refill, Normal inspection, Normal range of motion, Non-tender, No pedal edema Musculoskeletal : Apperance: Normal Neurologic: Alert, shipyard helper II-XII nml as Tested, No Motor Deficits, Normal Affect, Normal Mood, No Sensory Deficits Cerebellar Function: Normal Reflexes: Normal Skin: Dry, Normal Color, Warm Lymphatic: No Adenopathy Was a procedure done? Was a procedure done?: No GI differential Dx Differential Diagnosis: AAA, Cholangitis, Cholecystitis, Constipation, Gastritis/PUD, Gastroenteritis, Hernia, Hepatitis, Pancreatitis, Impaction, Mass, Stress Ulcer, Kidney Stone X-Ray, Labs, Meds, VS Vital Signs Date Time Temp Pulse Resp B/P (MAP) Pulse Ox O2 Delivery O2 Flow Rate FiO2 12/08/24 12:15 97.9 79 18 135/84 (101) 96 97.9 12/08/24 09:49 97.8 83 20 126/93 (104) 97 97.8 12/08/24 09:49 83 18 97 Room Air 12/08/24 09:40 20 97 Room Air* 0 21 12/08/24 09:30 97.8 80 18 130/95 (107) 98 97.8 Lab Test 12/08/24 10:19 12/08/24 09:27 Range/Units White Blood Count 3.6 L 4.4-10.8 10^3/uL Red Blood Count 4.61 4.5-5.90 10^6/uL Hemoglobin 13.6 13.5-17.5 g/dL Hematocrit 41.6 41.0-53.0 % Mean Corpuscular Volume 90.2 80.0-100.0 fL Mean Corpuscular Hemoglobin 29.6 28.0-32.0 pg Mean Corpuscular Hemoglobin Concent 32.8 32.0-36.0 g/dL Red Cell Distribution Width 14.3 11.8-14.3 % Platelet Count 168 140-450 10^3/uL Mean Platelet Volume 8.6 6.9-10.8 fL Neutrophils (%) (Auto) 60.3 37.0-80.0 % Lymphocytes (%) (Auto) 26.5 10.0-50.0 % Monocytes (%) (Auto) 12.5 H 0.0-12.0 % Eosinophils (%) (Auto) 0.4 0.0-7.0 % Basophils (%) (Auto) 0.3 0.0-2.0 % Neutrophils # (Auto) 2.2 1.6-8.6 10 ^3/uL Lymphocytes # (Auto) 1.0 0.4-5.4 10 ^3/uL Monocytes # (Auto) 0.5 0-1.3 10 ^3/uL Eosinophils # (Auto) 0 0-0.8 10 ^3/uL Basophils # (Auto) 0 0-0.2 10 ^3/uL Nucleated Red Blood Cells 0.3 % Sodium Level 140 136-145 mmol/L Potassium Level 3.8 3.5-5.1 mmol/L Chloride Level 106 98-107 mmol/L Carbon Dioxide Level 29 20-31 mmol/L Anion Gap 5 5-15 Blood Urea Nitrogen 11 9-23 mg/dL Creatinine 0.98 0.700-1.30 mg/dL Glomerular Filtration Rate Calc 102 >90 mL/min BUN/Creatinine Ratio 11.2 10.0-20.0 Serum Glucose 78 74-106 mg/dL Calcium Level 9.6 8.7-10.4 mg/dL Total Bilirubin 0.8 0.2-1.0 mg/dL Aspartate Amino Transferase (AST) 14 13-40 U/L Alanine Aminotransferase (ALT) 10 7-40 U/L Alkaline Phosphatase 81 46-116 U/L Total Protein 7.0 5.7-8.2 g/dL Albumin 4.4 3.2-4.8 g/dL Lipase 33 12-53 U/L Urine Color Light-yellow Yellow Urine Clarity Clear Clear Urine pH 6.0 5.0-9.0 Urine Specific Dent 1.021 1.001-1.035 Urine Protein Negative Negative Urine Ketones Negative Negative Urine Blood Negative Negative /uL Urine Nitrite Negative Negative Urine Bilirubin Negative Negative Urine Urobilinogen 2 H Negative mg/dL Urine Leukocyte Esterase Negative Negative /uL Urine RBC None seen 0 - 3 /hpf Urine Microscopic WBC < 1 0-3 /HPF Urine Squamous Epithelial Cells None seen <5 /hpf Urine Bacteria None seen None Seen /hpf Urine Glucose Normal Normal mg/dL Current Medications Medications (Trade) Dose Ordered Sig/Richa Route Start Time Stop Time Status Last Admin Ondansetron HCl (Zofran) 4 mg ONCE ONCE IV 12/08/24 10:00 12/08/24 10:01 DC 12/08/24 10:18 Acetaminophen/ Hydrocodone Bitart ([place] 5/325MG Tab) 1 tab ONCE ONCE PO 12/08/24 10:30 12/08/24 10:31 DC 12/08/24 10:25 Time of 1ST Reevaluation: 10:15 Reevaluation 1ST: Unchanged Time of 2ND Reevaluation: 12:55 Reevaluation 2ND: Resolved Patient Education/Counseling: Diagnosis, Treatment, Prognosis, Need For Follow Up Family Education/Counseling: No Family Present Additional Information Previous visit documents reviewed: 07/25/2024 for Gastritis The following tests were ordered, and results were reviewed by me: BMP, Lipase, Zofran, Gallbladder US, CT Ab/Pelv W-IV Con I reviewed and agreed with the following test results read by other providers: Radiologist I discussed treatment and results with medical personnel and: Patient although pt has a gallstone. his is not causing any signs of obstruction, nor has signs of inflammation. he is aware of this stone and is being followed by his PCP Departure 1 Departure Time of Disposition: 12:56 Impression: Primary Impression: Cholelithiasis Qualified Codes: K80.20 - Calculus of gallbladder without cholecystitis without obstruction Disposition: HOME / SELF CARE / HOMELESS Condition: Good e-Prescriptions Hydrocodone-Acetaminophen (Hydrocodone Bitartrate/AC 5-325 mg) 1 Tab Tab 1 TAB PO Q8HP PRN for 2 Days, #6 TAB Prov: PORSHA QUEEN MD 12/08/24 Discharged With: Self Critical Care Note Critical Care Time?: No Stability Stability form required: No Heart Score Heart Score: Heart Score Response (Comments) Value History N/A 0 EKG N/A 0 Age N/A 0 Risk Factors N/A 0 Troponin N/A 0 Total 0 I personally scribed for PORSHA QUEEN MD ([email or web address]) on 12/08/24 at 10:02. Electronically submitted by Heber Monk ([email or web address]). I personally scribed for PORSHA QUEEN MD ([email or web address]) on 12/08/24 at 10:04. Electronically submitted by Heber Monk ([email or web address]). PORSHA QUEEN MD Dec 08, 2024 10:02
[2024-12-08] MEDS: ONDANSETRON HCL 4 MG/2 ML VIAL IV ONE (10:18)
[2024-12-08] MEDS: HYDROcodone-ACET 5/325MG TAB PO ONE (10:25)
[2024-12-08] MEDS: IOHEXOL 300 MG/ML 100ML BOTTLE IJ ONE (10:31)
--- NOTE | 2024-12-08 10:35 | DVH ---
US GALLBLADDER HISTORY: epigastric pain COMPARISON: US GALLBLADDER on DOS: 03/17/24 TECHNIQUE: Transverse and longitudinal grayscale and color sonographic images were obtained of the ab domen. FINDINGS: Liver: - Size: 14.0 cm - Echogenicity: Normal - Surface Contour: Smooth - Liver Lesion(s): None - Portal Vein: Patent and forward flowing. - Bile Ducts: Normal. The common bile duct measures 3.4 mm. Gallbladder: Gallstone at the neck of gallbladder.. The sonographic spivey sign is negative. Pancreas: Portions not obscured by bowel gas are normal. Kidneys: - Right kidney size: 14.0 cm. There is no hydronephrosis, renal calculi, or mass lesion. Aorta and Inferior Vena Cava: The visualized portions of the abdominal aorta and intrahepatic vena ca va are normal. Other: None IMPRESSION: Gallstone at the neck of gallbladder..
[2024-12-08 10:43] LABS: Alanine Aminotransferase 10 U/L (7-40); Albumin 4.4 g/dL (3.2-4.8); Alkaline Phosphatase 81 U/L (46-116); Anion Gap 5 (5-15); Aspartate Aminotransferase 14 U/L (13-40); BUN/Creatinine Ratio 11.2 (10.0-20.0); Blood Urea Nitrogen 11 mg/dL (9-23); Calcium 9.6 mg/dL (8.7-10.4); Carbon Dioxide 29 mmol/L (20-31); Chloride 106 mmol/L (98-107); Glucose 78 mg/dL (74-106); Lipase 33 U/L (12-53); Potassium 3.8 mmol/L (3.5-5.1); Sodium 140 mmol/L (136-145)
[2024-12-08 10:44] LABS: Bilirubin, Total 0.8 mg/dL (0.2-1.0)
[2024-12-08 11:36] LABS: Basophils # (auto) 0 10 ^3/uL (0-0.2); Basophils % (auto) 0.3 % (0.0-2.0); Eosinophils # (auto) 0 10 ^3/uL (0-0.8); Eosinophils % (auto) 0.4 % (0.0-7.0); Hematocrit 41.6 % (41.0-53.0); Hemoglobin 13.6 g/dL (13.5-17.5); Lymphocytes % (auto) 26.5 % (10.0-50.0); Mean Corpuscular Hemoglobin 29.6 pg (28.0-32.0); Mean Corpuscular Hgb Conc. 32.8 g/dL (32.0-36.0); Mean Corpuscular Volume 90.2 fL (80.0-100.0); Monocytes # (auto) 0.5 10 ^3/uL (0-1.3); Monocytes % (auto) 12.5 % (0.0-12.0); Neutrophils # (auto) 2.2 10 ^3/uL (1.6-8.6); Neutrophils % (auto) 60.3 % (37.0-80.0); Nucleated Red Blood Cells % 0.3 %; Platelet Count (auto) 168 10^3/uL (140-450); Red Blood Cells 4.61 10^6/uL (4.5-5.90); Red Cell Distribution Width 14.3 % (11.8-14.3); White Blood Cell 3.6 10^3/uL (4.4-10.8)
[2024-12-08 11:43] LABS: Urine Bacteria None Seen /hpf (None Seen)
[2024-12-08 12:09] LABS: Urine Blood Negative /uL (Negative); Urine Clarity Clear (Clear); Urine Color Light-Yellow (Yellow); Urine Protein, UAD Negative (Negative); Urine Specific Gravity 1.021 (1.001-1.035); Urine Squamous Epithelial Cell None Seen /hpf (<5); Urine Urobilinogen 2 mg/dL (Negative); Urine WBC < 1 /HPF (0-3)
[2024-12-08 12:15] VITALS: BP 135/84; PULSE 79; RESP 18; TEMP 97.9; O2SAT 96
--- NOTE | 2024-12-08 12:22 | DVH ---
Exam: CT CT AB PEL WITH IV CON ONLY History: epigastric pain, back pain, history of AAA and GS COMPARISON: CT CT AB PEL WITH IV CON ONLY on DOS: 02/09/24, Technique: Multidetector spiral CT of the abdomen and pelvis was performed from lung bases to pubic s ymphysis. Intravenous contrast was administered during this examination. Portal venous imaging was o btained. Axial, coronal and sagittal multiplanar reformats were performed by the technologist on a [employer] workstation. Radiation Dose : 1. Abdomen/Pelvis: CTDIvol 9.81mGy, DLP 514.1 mGy*cm. CONTRAST: Type of contrast: Omnipaque 300 Contrast injected: 100 ml Contrast ingested: 0 ml Findings: Lung Bases: No acute or significant lung base finding. Normal heart size. No pleural or pericardial effusion. Liver: The liver is normal in size. No focal lesions. Normal hepatic vascular enhancement. Gallbladder and Biliary Tree: Cholelithiasis. Spleen: Unremarkable Pancreas: The pancreas is normal in appearance without focal lesions or abnormal enhancement. Adrenal Glands: Unremarkable Kidneys: No hydronephrosis. Bladder: Unremarkable Bowel: Unremarkable. Normal appendix is visualized in the right lower quadrant without findings of a ppendicitis. Ascites: Absent Lymphadenopathy: No lymphadenopathy. Abdominal Wall and Mesentery: Unremarkable. Vasculature: Redemonstration of postsurgical changes of the distal aorta at the bifurcation to the il iac arteries. Redemonstration of fem-fem vascular graft and partially visualized right axillary-fem v ascular graft, which are not well opacified and may be occluded. Right external iliac artery/bypass s tent is noted which appears patent. Similar 3.8 cm partially enhancing hypodense structure along the right iliac artery stent. Similar 2.3 cm partially enhancing hypodense structure along the left exter nal iliac artery /bypass. Pelvic Organs: Unremarkable Musculoskeletal: No aggressive focal bony lesions, acute fractures or dislocation. IMPRESSION: 1. No acute abdominal or pelvic finding. 2. Redemonstration of postsurgical changes of the distal aorta at the bifurcation to the iliac arteri es. Redemonstration of fem-fem vascular graft and partially visualized right axillary-fem vascular gr aft, which are not well opacified and may be occluded, similar to 02/09/2024. 3. Similar 3.8 cm partially enhancing hypodense structure along the right iliac artery stent. Similar 2.3 cm partially enhancing hypodense structure along the left external iliac artery /bypass. These c ould represent partially thrombosed aneurysms. Radiation optimization: All CT scans at this facility use at least one of these dose optimization monica hniques: automated exposure control mA and/or kV adjustment per patient size (includes targeted exam s where dose is matched to clinical indication) or iterative reconstruction.
[2024-12-08] MEDS ORDERED: HYDR-4902 PO (12:57)
== END 2024-12-08 13:07 | disposition home or self-care (01) ==
LOC: ER 09:15
DX: K80.20 Calculus of gallbladder without cholecystitis without obstruction (principal); I10 Essential (primary) hypertension; F17.210 Nicotine dependence, cigarettes, uncomplicated; F12.90 Cannabis use, unspecified, uncomplicated; F15.90 Other stimulant use, unspecified, uncomplicated; Z98.890 Other specified postprocedural states; Z79.899 Other long term (current) drug therapy
CPT/HCPCS: 36415; 74177; 76705; 80053; 81001; 83690; 85025; 96374; 99285; J2405; Q9967

== ENCOUNTER 2024-12-17 08:49 | Inpatient (IN) | payer OTHER ==
[~2024-12-17] VITALS: Ht 160 cm; Wt 84.7 kg
[2024-12-17 09:37] LABS: Chloride 101 mmol/L (98-107); Potassium 3.5 mmol/L (3.5-5.1); Sodium 139 mmol/L (136-145)
[2024-12-17 09:38] LABS: Anion Gap 12 (5-15); Basophils # (auto) 0 10 ^3/uL (0-0.2); Basophils % (auto) 0.2 % (0.0-2.0); Carbon Dioxide 26 mmol/L (20-31); Eosinophils # (auto) 0 10 ^3/uL (0-0.8); Hematocrit 44.2 % (41.0-53.0); Hemoglobin 14.8 g/dL (13.5-17.5); Lymphocytes # (auto) 0.9 10 ^3/uL (0.4-5.4); Lymphocytes % (auto) 14.8 % (10.0-50.0); Mean Corpuscular Hemoglobin 30.1 pg (28.0-32.0); Mean Corpuscular Hgb Conc. 33.5 g/dL (32.0-36.0); Mean Corpuscular Volume 89.7 fL (80.0-100.0); Monocytes # (auto) 0.5 10 ^3/uL (0-1.3); Monocytes % (auto) 7.9 % (0.0-12.0); Neutrophils # (auto) 4.7 10 ^3/uL (1.6-8.6); Neutrophils % (auto) 77.1 % (37.0-80.0); Platelet Count (auto) 196 10^3/uL (140-450); Red Blood Cells 4.93 10^6/uL (4.5-5.90); White Blood Cell 6.1 10^3/uL (4.4-10.8)
[2024-12-17 09:44] LABS: BUN/Creatinine Ratio 5.4 (10.0-20.0)
[2024-12-17 09:46] LABS: Blood Urea Nitrogen 5 mg/dL (9-23); Glucose 111 mg/dL (74-106)
[2024-12-17 09:55] VITALS: PULSE 71; RESP 17; O2SAT 95
[2024-12-17 10:04] LABS: Urine Bacteria None Seen /hpf (None Seen)
--- NOTE | 2024-12-17 10:28 | ED.PDOC ---
GI ASSESSMENT HPI Comments 39 y/o M, with PMHX of CAD, HTN, and gallstones presents to the ED for CC of abdominal pain. Patient states that he has been experiencing diffuse abdominal pain with associated chest pain, nausea, and vomiting. Patient endorses, that abdominal pain radiates to his chest causing discomfort on his right side. Patient relays, that he was seen at [facility] yesterday (12/16/24) for symptoms and was relayed to follow up at [facility] to see a c ardiologist. Patient denies palpitations, shortness of breath, weakness, numbness of arms or legs, and diarrhea. No other symptoms or modifying factors at this time. Chief Complaint: Abdominal Pain Time Seen by MD: 09:20 Primary Care Provider: pt does not know Reviewed Notes: Nurses Notes, Medications, Allergies Allergies: Coded Allergies: NO KNOWN ALLERGIES (Unverified , 05/02/21) Home Meds Active Scripts Promethazine-Dm (Promethazine Dm 6.25-15 mg/5Ml) 1 Coreen Coreen, 5 ML PO TID, #150 ML Prov:LIANA CUBA 04/19/24 Cephalexin Monohydrate (Cephalexin) 500 Mg Cap, 1 CAP PO QID, #28 CAP Prov:LIANA CUBA 04/19/24 Ondansetron Odt 4MG Tab (ZOFRAN PO) 4 Mg Tb, 4 MG PO Q8HR PRN, #14 TAB ODT TAB-DISSOLVE IN MOUTH, THEN SWALLOW Prov:RASTA CANTU MD 03/17/24 Naproxen (NAPROSYN TABLET) 500 Mg Tb, 1 TAB PO BID PRN, #20 TAB 1 Refill Prov:RASTA CANTU MD 03/17/24 Tramadol Hcl (Tramadol Hcl) 50 Mg Tab, 50 MG PO BID for 5 Days, #10 TAB Prov:STEPHIE COLE MD 02/09/24 Metoclopramide Hcl (Reglan) 10 Mg Tab, 10 MG PO BID for 15 Days, #30 TAB Prov:STEPHIE COLE MD 02/09/24 Baclofen (Baclofen) 10 Mg Tab, 10 MG PO BID, #20 TAB Prov:LIANA CUBA 02/01/24 Ibuprofen (Ibuprofen) 800 Mg Tab, 1 TAB PO TID, #30 TAB Prov:LIANA CUBA 02/01/24 Hydrocodone-Acetaminophen (Hydrocodone Bitartrate/AC 5-325 mg) 1 Tab Tab, 1 TAB PO TID PRN, #25 TAB Prov:ISHMAEL GALINDO 12/25/23 Discontinued Scripts Hydrocodone-Acetaminophen (Hydrocodone Bitartrate/AC 5-325 mg) 1 Tab Tab, 1 TAB PO Q8HP PRN for 2 Days, #6 TAB Prov:PORSHA QUEEN MD 12/08/24 Pantoprazole Sodium Sesquihydr (Protonix) 40 Mg Tab, 40 MG PO DAILY for 5 Days, #5 TAB Prov:MARLY CARRERO MD 07/25/24 Prednisone (Prednisone) 20 Mg Tab, 60 MG PO DAILY for 5 Days, #15 TAB Prov:LIANA CUBA 04/19/24 Clindamycin Hcl (Clindamycin Hcl) 300 Mg Cap, 1 CAP PO TID, #30 CAP Prov:LIANA CUBA 02/01/24 Promethazine-Dm (Promethazine Dm 6.25-15 mg/5Ml) 1 Coreen Coreen, 5 ML PO TID PRN, #240 ML Prov:ISHMAEL GALINDO 12/25/23 Montelukast Sodium (MONTELUKAST SODIUM) 10 Mg Tab, 1 TAB PO DAILY, #30 TAB 5 Refills Prov:ISHMAEL GALINDO 12/25/23 Promethazine-Dm (Promethazine Dm 6.25-15 mg/5Ml) 1 Coreen Coreen, 5 ML PO TID, #150 ML Prov:LIANA CUBA 11/23/23 Clindamycin Hcl (Clindamycin Hcl) 300 Mg Cap, 1 CAP PO TID, #30 CAP Prov:LIANA CUBA 11/23/23 Ibuprofen (Ibuprofen) 800 Mg Tab, 1 TAB PO TID, #30 TAB Prov:LIANA CUBA 11/23/23 Acetaminophen W/ Codeine (Codeine/Acetaminophen) 1 Tab Tab, 1 TAB PO TIDPRN PRN for 5 Days, #15 TAB 0 Refills Prov:ALLA SPEAR NP 10/02/23 Amoxicillin Trihydrate (Amoxicillin) 500 Mg Tab, 1 TAB PO BID for 10 Days, #20 TAB 0 Refills Prov:ALLA SPEAR LEGAL BILLING CLERK 10/02/23 Information Source: Patient Mode of Arrival: Ambulatory Timing: Days Duration: Since onset Prehospital treatment: None Quality: None Vomitus: Watery Stool: Normal Severity: Moderate Recent: None Recent Hx of: None Pain Location: Diffuse Modifying Factors: Nothing Associated sign and symptoms: Nausea, Vomiting Past Medical History PAST MEDICAL HISTORY: CAD, Gallstones, HTN Surgical History: PTCA Family History Family History: Reviewed,noncontributory to illness, Family hx of DM, Family hx of Cancer, Family hx of heart jhonatan Social History Smoker: Cigarettes Alcohol: Denies ETOH Use Drugs: Cocaine, Marijuana Lives In: Home Constitutional: denies: chills, diaphoresis, fatigue, fever, malaise, sweats, weakness, others EENTM: denies: blurred vision, double vision, ear bleeding, ear discharge, ear drainage, ear pain, ear ringing, eye pain, eye redness, hearing loss, mouth pain, mouth swelling, nasal discharge, nose bleeding, nose congestion, nose pain, photophobia, tearing, throat pain, throat swelling, voice changes, others Respiratory: denies: cough, hemoptysis, orthopnea, SOB at rest, shortness of breath, SOB with excertion, stridor, wheezing, others Cardiovascular: reports: chest pain; denies: dizzy spells, diaphoresis, Dyspnea on exertion, edema, irregular heart beat, left arm pain, lightheadedness, palpitations, PND, syncope, others Gastrointestinal: reports: abdominal pain, nausea, vomiting; denies: abdomen distended, blood streaked bowels, constipated, diarrhea, dysphagia, difficulty swallowing, hematemesis, melena, poor appetite, poor fluid intake, rectal bleeding, rectal pain, others Genitourinary: denies: burning, dysuria, flank pain, frequency, hematuria, incontinence, penile discharge, penile sore, pain, testicle pain, testicle swelling, urgency, others Neurological: denies: dizziness, fainting, headache, left sided numbness, left sided weakness, numbness, paresthesia, pre-existing deficit, right sided numbness, right sided weakness, seizure, speech problems, tingling, tremors, weakness, others Musculoskeletal: denies: back pain, gout, joint pain, joint swelling, muscle pain, muscle stiffness, neck pain, others Integumetry: denies: bruises, change in color, change in hair/nails, dryness, laceration, lesions, lumps, rash, wounds, others Allergic/Immunocompromised: denies: Difficulty Healing, Frequent Infections, Hives, Itching, others Hematologic/Lymphatic: denies: anemia, blood clots, easy bleeding, easy bruising, swollen glands, others Endocrine: denies: excessive hunger, excessive sweating, excessive thirst, excessive urination, flushing, intolerance to cold, intolerance to heat, unexplained weight gain, unexplained weight loss, others Psychiatric: denies: anxiety, bipolar disorder, depression, hopeless, panic disorder, schizophrenia, sleepless, suicidal, others All Other Systems: Reviewed and Negative Physical Exam General Appearance: Moderate Distress HEENT: Normal ENT Inspection, Pharynx Normal, TMs Normal Neck: Full Range of Motion, Non-Tender, Normal, Normal Inspection Respiratory: Chest Non-Tender, Lungs Clear, No Accessory Muscle Use, No Respiratory Distress, Normal Breath Sounds Cardiovascular: No Edema, No JVD, No Murmur, No Gallop, Normal Peripheral Pulses, Regular Rate/Rhythm Breast Exam: Deferred Gastrointestinal: No Organomegaly, Non Tender, No Pulsatile Mass, Normal Bowel Sounds, Soft Genitalia: Deferred Pelvic: Deferred Rectal: Deferred Extremities: No calf tenderness, Normal capillary refill, Normal inspection, Normal range of motion, Non-tender, No pedal edema Musculoskeletal : Apperance: Normal Neurologic: Alert, air hoist operator II-XII nml as Tested, No Motor Deficits, Normal Affect, Normal Mood, No Sensory Deficits Cerebellar Function: Normal Reflexes: Normal Skin: Dry, Normal Color, Warm Peripheral Pulses: 3+ Radial (R), 3+ Radial (L) Lymphatic: No Adenopathy Was a procedure done? Was a procedure done?: No GI differential Dx Differential Diagnosis: Constipation, Diverticular disease, Esophagitis, Gastritis/PUD, Gastroenteritis, Electrolyte Imbalance, Food Poisoning, Bacterial, Viral X-Ray, Labs, Meds, VS Vital Signs Date Time Temp Pulse Resp B/P (MAP) Pulse Ox O2 Delivery O2 Flow Rate FiO2 12/17/24 11:35 77 18 126/64 (84) 97 12/17/24 09:55 71 17 95 Room Air* 0 21 12/17/24 09:55 98.2 17 17 141/86 (104) 95 98.2 12/17/24 09:00 97.9 94 19 137/97 (110) 96 97.9 Lab Test 12/17/24 10:20 12/17/24 09:51 12/17/24 09:08 Range/Units Troponin I High Sensitivity 3 L </=54 ng/L Urine Color Yellow Yellow Urine Clarity Clear Clear Urine pH 7.0 5.0-9.0 Urine Specific [place] > 1.035 H 1.001-1.035 Urine Protein Trace H Negative Urine Ketones Negative Negative Urine Blood Negative Negative /uL Urine Nitrite Negative Negative Urine Bilirubin Negative Negative Urine Urobilinogen 4 H Negative mg/dL Urine Leukocyte Esterase Negative Negative /uL Urine RBC <1 0 - 3 /hpf Urine Microscopic WBC 1 0-3 /HPF Urine Squamous Epithelial Cells None seen <5 /hpf Urine Bacteria None seen None Seen /hpf Urine Glucose Normal Normal mg/dL White Blood Count 6.1 4.4-10.8 10^3/uL Red Blood Count 4.93 4.5-5.90 10^6/uL Hemoglobin 14.8 13.5-17.5 g/dL Hematocrit 44.2 41.0-53.0 % Mean Corpuscular Volume 89.7 80.0-100.0 fL Mean Corpuscular Hemoglobin 30.1 28.0-32.0 pg Mean Corpuscular Hemoglobin Concent 33.5 32.0-36.0 g/dL Red Cell Distribution Width 14.0 11.8-14.3 % Platelet Count 196 140-450 10^3/uL Mean Platelet Volume 8.5 6.9-10.8 fL Neutrophils (%) (Auto) 77.1 37.0-80.0 % Lymphocytes (%) (Auto) 14.8 10.0-50.0 % Monocytes (%) (Auto) 7.9 0.0-12.0 % Eosinophils (%) (Auto) 0.0 0.0-7.0 % Basophils (%) (Auto) 0.2 0.0-2.0 % Neutrophils # (Auto) 4.7 1.6-8.6 10 ^3/uL Lymphocytes # (Auto) 0.9 0.4-5.4 10 ^3/uL Monocytes # (Auto) 0.5 0-1.3 10 ^3/uL Eosinophils # (Auto) 0 0-0.8 10 ^3/uL Basophils # (Auto) 0 0-0.2 10 ^3/uL Nucleated Red Blood Cells 0.0 % Sodium Level 139 136-145 mmol/L Potassium Level 3.5 3.5-5.1 mmol/L Chloride Level 101 98-107 mmol/L Carbon Dioxide Level 26 20-31 mmol/L Anion Gap 12 5-15 Blood Urea Nitrogen 5 L 9-23 mg/dL Creatinine 0.93 0.700-1.30 mg/dL Glomerular Filtration Rate Calc 108 >90 mL/min BUN/Creatinine Ratio 5.4 L 10.0-20.0 Serum Glucose 111 H 74-106 mg/dL Calcium Level 10.0 8.7-10.4 mg/dL Current Medications Medications (Trade) Dose Ordered Sig/Richa Route Start Time Stop Time Status Last Admin Sodium Chloride 1,000 ml @ 1,000 mls/hr Q1H ONCE IV 12/17/24 10:15 12/17/24 11:14 DC 12/17/24 10:33 Patient alert. Complaining of abdominal pain. Chest discomfort. Vitals stable. Was at [facility] for similar condition was discharged stating that he has heart problems and he will need further workup. WBC within normal limits. Hemoglobin within normal limits. Continues to have GI symptoms. Establish intravenous access. Was given fluids. Explained to the patient. Continue cardiac monitoring. Time of 1ST Reevaluation: 09:50 Reevaluation 1ST: Unchanged Patient Education/Counseling: Diagnosis, Treatment Family Education/Counseling: No Family Present Departure 1 Departure Time of Disposition: 17:44 Impression: Primary Impression: Chest pain of unknown etiology Additional Impression: Gastroenteritis Disposition: 09 ADMITTED INPATIENT Admit to: Med Surg Condition: Guarded Critical Care Note Critical Care Time?: No Stability Stability form required: No Heart Score Heart Score: Heart Score Response (Comments) Value History Slightly Suspicious 0 EKG Normal 0 Age <45 0 Risk Factors No known risk factors 0 Troponin Normal limit 0 Total 0 I personally scribed for MARLY CARRERO MD ([email or web address]) on 12/17/24 at 10:28. Electronically submitted by Hermelinda Grande ([email or web address]). MARLY CARRERO MD Dec 17, 2024 10:28
[2024-12-17 10:33] LABS: Urine Blood Negative /uL (Negative); Urine Clarity Clear (Clear); Urine Color Yellow (Yellow); Urine Protein, UAD TRACE (Negative); Urine Squamous Epithelial Cell None Seen /hpf (<5); Urine Urobilinogen 4 mg/dL (Negative); Urine WBC 1 /HPF (0-3)
[2024-12-17] MEDS: SODIUM CHLORIDE 0.9% 1,000 ML IV ONE ×2 (10:33→21:00)
[2024-12-17 10:43] LABS: Urine Specific Gravity > 1.035 (1.001-1.035)
--- NOTE | 2024-12-17 13:12 | DVH ---
CT CHEST, ABDOMEN AND PELVIS CLINICAL HISTORY: EVALUATE AXIALLARY FEMORAL BYPASS TECHNIQUE: Multiple contiguous axial images of the chest, abdomen and pelvis with intravenous contras t. The images were reformatted degenerate coronal and sagittal reconstructions. 100 cc of Omnipaque 300 contrast was injected intravenously. All CT scans at this medical facility are performed using dose modulation techniques as appropriate t o a performed exam including the following:Automated exposure control was utilized; adjustment of the MA and/or KV according to patient size; and use of iterative reconstruction technique. Radiation Dose Information: CT Dose: CTDI volume is 7.92 mGy. Dose-length product is 573.0 mGy*cm FINDINGS: The lungs are clear without evidence of consolidation. There is no pleural effusion or pneumothorax. There is no suspicious appearing pulmonary nodule or mass. There is no evidence of a mediastinal mass or lymphadenopathy. There is no hilar or axillary lymphad enopathy. The heart size within normal limits. There is no pericardial effusion. There is Hyperdense sludge and a gallstone in the gallbladder. The liver, pancreas, kidneys, adren al glands, and spleen appear within normal limits. There is no evidence of abdominal lymphadenopathy. There is no free fluid or free air. The stomach grossly appears unremarkable.The small and large bowel loops demonstrate normal caliber a nd appear within normal limits.. There is a right axillary femoral vascular bypass graft and a fem-fem vascular bypass graft. There is no intraluminal contrast opacification in the grafts which again may be occluded. Again seen are postsurgical changes of the aortic bifurcation. There is a stent in the right external iliac artery. There is a stable 3.8 cm oval hypodense structure with central contrast opacification along the right iliac artery stent. There is a similar-appearing 2.3 cm structure along the left exte rnal iliac artery. The bladder appears unremarkable. Pelvic organ appears within normal limits. There is no evidence o f a pelvic mass or lymphadenopathy. There is no free fluid collection. There is no acute osseous abnormality. IMPRESSION: 1. There is no acute process in the chest, abdomen and pelvis. 2. Redemonstrated are postsurgical changes of the aortic bifurcation. There are stable appearing hypo dense structures along the iliac arteries with central contrast enhancement. 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 3. There are right axillary femoral and a fem-fem vascular bypass grafts. There is no intraluminal co ntrast opacification in the grafts which again may be occluded. HS:Y
[2024-12-17] MEDS: IOHEXOL 300 MG/ML 100ML BOTTLE IJ ONE (13:13)
--- NOTE | 2024-12-17 13:29 | DVHHP2 ---
History of Present Illness Reason for Visit: Abdominal pain, chest pain History of Present Illness [place] is a 39-year-old male, with past medical history of hypertension, axillary-femoral graft, AAA repair, and gallstones, who states he came to the hospital for chest pain and abdominal pain. Patient states that for the last 3-4 days he has been experiencing chest pain across his entire chest, with abdominal pain and fullness, along with nausea and vomiting. Patient knows he has a history of gallstones and he wasn't sure if that was the problem. He states the pain and nausea/vomiting was not improving prompting him to come to the hospital. Cardiovascular: Other (axillary-femoral graft) Hepatobiliary: Cholelithiasis Past Surgical History: Other (AAA repair) Lives: with Family Review of Systems Constitutional: No: Fever, Chills, Sweats, Weakness, Malaise, Other Eyes: No: Pain, Vision change, Conjunctivae inflammation, Eyelid inflammation, Other, Redness ENT: No: Ear pain, Ear discharge, Nose pain, Nose discharge, Nose congestion, Mouth pain, Mouth swelling, Throat pain, Throat swelling, Other Respiratory: No: Cough, Dry, Shortness of breath, SOB with excertion, Wheezing, Hemoptysis, Pleuritic Pain, Sputum, Wheezing, Other Cardiovascular: Chest Pain; No: Palpitations, Orthopnea, Paroxysmal Noc. Dyspnea, Edema, Lt Headedness, Other Gastrointestinal: Nausea, Vomiting, Abdominal Pain; No: Diarrhea, Constipation, Melena, Hematochezia, Other Genitourinary: No Dysuria, No Frequency, No Incontinence, No Hematuria, No Retention, No Other Skin: No: Rash, Lesions, Jaundice, Bruising, Other Neurological: No: Weakness, Numbness, Incoordination, Change in speech, Confusion, Seizures, Other Allergies: Coded Allergies: NO KNOWN ALLERGIES (Unverified , 05/02/21) Medications Current Medications Medications Dose Ordered Sig/Richa Route Start Time Stop Time Status Last Admin Dose Admin Acetaminophen/ Hydrocodone Bitart 1 tab Q4HP PRN PO 12/17/24 13:30 UNV Ondansetron HCl 4 mg Q4HP PRN IV 12/17/24 13:30 UNV Docusate Sodium 100 mg BIDPRN PRN PO 12/17/24 13:30 UNV Acetaminophen 650 mg Q6HP PRN PO 12/17/24 13:30 UNV Exam Vital Signs Vital Signs Date Time Temp Pulse Resp B/P (MAP) Pulse Ox O2 Delivery O2 Flow Rate FiO2 12/17/24 09:55 71 17 95 Room Air* 0 21 12/17/24 09:55 98.2 141/86 (104) 98.2 General Appearance: Alert, Oriented X3, Cooperative, mild distress HEENT: Atraumatic Respiratory: Clear to auscultation, Normal air movement Cardiovascular: Regular rate, Normal S1, Normal S2, No murmurs Abdominal: Normal bowel sounds, Soft, Other (Nausea, vomiting, abdomial pain) Extremities: No clubbing, No cyanosis, No edema, Normal pulses Skin: No rashes, No breakdown, No significant lesion Neuro: Normal gait, Normal speech, Strength at 5/5 X4 ext, Normal tone Psych/Mental Status: Mental status NL, Mood NL Labs/Xrays Labs Test 12/17/24 10:20 12/17/24 09:51 12/17/24 09:08 Range/Units Troponin I High Sensitivity 3 L </=54 ng/L Urine Color Yellow Yellow Urine Clarity Clear Clear Urine pH 7.0 5.0-9.0 Urine Specific [place] > 1.035 H 1.001-1.035 Urine Protein Trace H Negative Urine Ketones Negative Negative Urine Blood Negative Negative /uL Urine Nitrite Negative Negative Urine Bilirubin Negative Negative Urine Urobilinogen 4 H Negative mg/dL Urine Leukocyte Esterase Negative Negative /uL Urine RBC <1 0 - 3 /hpf Urine Microscopic WBC 1 0-3 /HPF Urine Squamous Epithelial Cells None seen <5 /hpf Urine Bacteria None seen None Seen /hpf Urine Glucose Normal Normal mg/dL White Blood Count 6.1 4.4-10.8 10^3/uL Red Blood Count 4.93 4.5-5.90 10^6/uL Hemoglobin 14.8 13.5-17.5 g/dL Hematocrit 44.2 41.0-53.0 % Mean Corpuscular Volume 89.7 80.0-100.0 fL Mean Corpuscular Hemoglobin 30.1 28.0-32.0 pg Mean Corpuscular Hemoglobin Concent 33.5 32.0-36.0 g/dL Red Cell Distribution Width 14.0 11.8-14.3 % Platelet Count 196 140-450 10^3/uL Mean Platelet Volume 8.5 6.9-10.8 fL Neutrophils (%) (Auto) 77.1 37.0-80.0 % Lymphocytes (%) (Auto) 14.8 10.0-50.0 % Monocytes (%) (Auto) 7.9 0.0-12.0 % Eosinophils (%) (Auto) 0.0 0.0-7.0 % Basophils (%) (Auto) 0.2 0.0-2.0 % Neutrophils # (Auto) 4.7 1.6-8.6 10 ^3/uL Lymphocytes # (Auto) 0.9 0.4-5.4 10 ^3/uL Monocytes # (Auto) 0.5 0-1.3 10 ^3/uL Eosinophils # (Auto) 0 0-0.8 10 ^3/uL Basophils # (Auto) 0 0-0.2 10 ^3/uL Nucleated Red Blood Cells 0.0 % Sodium Level 139 136-145 mmol/L Potassium Level 3.5 3.5-5.1 mmol/L Chloride Level 101 98-107 mmol/L Carbon Dioxide Level 26 20-31 mmol/L Anion Gap 12 5-15 Blood Urea Nitrogen 5 L 9-23 mg/dL Creatinine 0.93 0.700-1.30 mg/dL Glomerular Filtration Rate Calc 108 >90 mL/min BUN/Creatinine Ratio 5.4 L 10.0-20.0 Serum Glucose 111 H 74-106 mg/dL Calcium Level 10.0 8.7-10.4 mg/dL CT CHEST, ABDOMEN AND PELVIS FINDINGS: The lungs are clear without evidence of consolidation. There is no pleural effusion or pneumothorax. There is no suspicious appearing pulmonary nodule or mass. There is no evidence of a mediastinal mass or lymphadenopathy. There is no hilar or axillary lymphadenopathy. The heart size within normal limits. There is no pericardial effusion. There is Hyperdense sludge and a gallstone in the gallbladder. The liver, pancreas, kidneys, adrenal glands, and spleen appear within normal limits. There is no evidence of abdominal lymphadenopathy. There is no free fluid or free air. The stomach grossly appears unremarkable.The small and large bowel loops demonstrate normal caliber and appear within normal limits.. There is a right axillary femoral vascular bypass graft and a fem-fem vascular bypass graft. There is no intraluminal contrast opacification in the grafts which again may be occluded. Again seen are postsurgical changes of the aortic bifurcation. There is a stent in the right external iliac artery. There is a stable 3.8 cm oval hypodense structure with central contrast opacification along the right iliac artery stent. There is a similar-appearing 2.3 cm structure along the left external iliac artery. The bladder appears unremarkable. Pelvic organ appears within normal limits. There is no evidence of a pelvic mass or lymphadenopathy. There is no free fluid collection. There is no acute osseous abnormality. IMPRESSION: 1. There is no acute process in the chest, abdomen and pelvis. 2. Redemonstrated are postsurgical changes of the aortic bifurcation. There are stable appearing hypodense structures along the iliac arteries with central contrast enhancement. 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 3. There are right axillary femoral and a fem-fem vascular bypass grafts. There is no intraluminal contrast opacification in the grafts which again may be occluded. Assessment/Plan Assessment/Plan Assessment: Gastritis, Gallstones, Hypertension, Plan: Admit to Med-Surg, IV hydration, IV antibiotics, Clear liquid diet, Advance diet as tolerated, Consider GI consult if symptoms persist, Protonix IV BID, Plan discussed with: Patient My Orders Orders - ALEJANDRINA SANTIAGO Procedure Category Date Status Time Admit ADMIT 12/17/24 Transmitted 13:22 Code Status CODE 12/17/24 Transmitted 13:22 Hydrocodone-Acet PHA 12/17/24 Logged 5/325mg Tab ([place] 13:30 Ondansetron Hcl PHA 12/17/24 Logged (Zofran) 13:30 Docusate Sodium PHA 12/17/24 Logged Capsule ([place] 13:30 Complete Blood Count LAB 12/18/24 Verified 04:00 Comprehensive LAB 12/18/24 Verified Metabolic Panel 04:00 Condition: Serious BLAYNE 12/17/24 In Process 13:22 Acetaminophen Tablet PHA 12/17/24 Logged (Tylenol Tablet) 13:30 Clear Liq Diet DIET 12/17/24 Transmitted Lunch Date of Service: Dec 17, 2024 Billing Provider: ALEJANDRINA SANTIAGO Common Visit Codes: [id number] INP/OBS CARE (MOD) ALEJANDRINA SANTIAGO Dec 17, 2024 13:29
[2024-12-17] MEDS ORDERED: ONDANSETRON HCL 4 MG/2 ML VIAL IV PRN (13:30)
[2024-12-17] MEDS ORDERED: ACETAMINOPHEN 325 MG TAB PO PRN (13:30)
[2024-12-17] MEDS ORDERED: DOCUSATE SOD 100 MG CAP PO PRN (13:30)
[2024-12-17] MEDS: HYDROcodone-ACET 5/325MG TAB PO PRN (15:48)
[2024-12-17] MEDS: METOCLOPRAMIDE HCL 5MG/ml INJ 2ml VIAL IV SCH (15:48)
[2024-12-17 16:35] VITALS: BP 129/87; PULSE 66; RESP 17; TEMP 97.6; O2SAT 97
[2024-12-17] MEDS: metroNIDAZOLE 500MG/100ML 100 ML IV SCH (21:00)
[2024-12-17] MEDS: PANTOPRAZOLE 40 MG/10 ML VIAL INJ IV SCH (21:00)
[2024-12-17 22:40] VITALS: BP 129/82; PULSE 62; RESP 16; TEMP 97.6; O2SAT 97
[2024-12-17] MEDS: HYDROcodone-ACET 5/325MG TAB PO ONE (23:01)
[2024-12-18] VITALS (8 sets, daily range): BP systolic 111–139; BP diastolic 68–88; PULSE 55–74; RESP 15–20; TEMP 97.2–98.4; O2SAT 97–99
[2024-12-18] MEDS ORDERED: ACET-6 PO (03:55)
[2024-12-18] MEDS ORDERED: AMLO1TAB22 PO (03:55)
[2024-12-18] MEDS ORDERED: ASPI-543 PO (03:55)
[2024-12-18] MEDS ORDERED: CYCL-611 PO (03:55)
[2024-12-18] MEDS ORDERED: METH-1182 PO (03:57)
[2024-12-18 06:27] LABS: Basophils # (auto) 0 10 ^3/uL (0-0.2); Basophils % (auto) 0.3 % (0.0-2.0); Eosinophils # (auto) 0 10 ^3/uL (0-0.8); Eosinophils % (auto) 0.3 % (0.0-7.0); Hematocrit 40.9 % (41.0-53.0); Hemoglobin 13.9 g/dL (13.5-17.5); Lymphocytes # (auto) 1.2 10 ^3/uL (0.4-5.4); Lymphocytes % (auto) 34.9 % (10.0-50.0); Mean Corpuscular Hemoglobin 30.5 pg (28.0-32.0); Mean Corpuscular Hgb Conc. 33.9 g/dL (32.0-36.0); Mean Corpuscular Volume 90.1 fL (80.0-100.0); Monocytes # (auto) 0.4 10 ^3/uL (0-1.3); Monocytes % (auto) 11.3 % (0.0-12.0); Neutrophils # (auto) 1.9 10 ^3/uL (1.6-8.6); Neutrophils % (auto) 53.2 % (37.0-80.0); Nucleated Red Blood Cells % 0.1 %; Platelet Count (auto) 182 10^3/uL (140-450); Red Blood Cells 4.54 10^6/uL (4.5-5.90); Red Cell Distribution Width 13.9 % (11.8-14.3); White Blood Cell 3.5 10^3/uL (4.4-10.8)
[2024-12-18 06:39] LABS: Alanine Aminotransferase 10 U/L (7-40); Alkaline Phosphatase 82 U/L (46-116); Anion Gap 5 (5-15); BUN/Creatinine Ratio 6.2 (10.0-20.0); Calcium 9.5 mg/dL (8.7-10.4); Carbon Dioxide 30 mmol/L (20-31); Chloride 105 mmol/L (98-107); Glucose 82 mg/dL (74-106); Potassium 3.6 mmol/L (3.5-5.1); Sodium 140 mmol/L (136-145); Total Protein 6.6 g/dL (5.7-8.2)
[2024-12-18 06:40] LABS: Albumin 4.2 g/dL (3.2-4.8); Aspartate Aminotransferase 14 U/L (13-40); Bilirubin, Total 1.2 mg/dL (0.2-1.0)
[2024-12-18 06:41] LABS: Blood Urea Nitrogen 6 mg/dL (9-23)
--- NOTE | 2024-12-18 15:50 | DVHPN2 ---
Assessment/Plan Assessment/Plan Progress note 39 yo M with HTN, axillary-femoral graft, AAA repair, gallstones admitted for chest and abdominal pain. Physical exam alert oriented x3 clear breath sounds s1 s2 rrr no murmur tender chest wall to palpation abdomen soft nontender, abdominal bruit no le edema labs ekg imaging reviewed assessment and plan chest pain with wall tenderness likely costochondritis s/p axillary-femoral graft 2017 s/p AAA repair 2002 gallstones trend trop ekg echo pain management toradol maalox diet clear liquid dvt ppx ambul Plan discussed with: Patient My Orders Orders - PEDRO COMBS MD Procedure Category Date Status Time Ketorolac Injection PHA 12/18/24 In Process (Toradol Injection) 15:15 Acetaminophen Tablet PHA 12/18/24 In Process (Tylenol Tablet) 22:00 Electrocardigram EKG 12/18/24 Logged 15:07 Alum & Mag PHA 12/18/24 In Process Hydrox-Simethicone 15:15 Troponin-I Hs LAB 12/18/24 Logged 15:15 Troponin-I Hs LAB 12/18/24 Logged 16:15 Troponin-I Hs LAB 12/18/24 Logged 18:15 Date of Service: Dec 18, 2024 Billing Provider: PEDRO COMBS MD Common Visit Codes: [id number] INP/OBS CARE(HIGH) PEDRO COMBS MD Dec 18, 2024 15:50
[2024-12-18] MEDS: MAALOX PLUS or MAALOX 30 ML PO SCH (15:57)
[2024-12-18] MEDS: KETOROLAC TROMETH 30 MG/ML 1ML VIAL IV PRN (16:13)
--- NOTE | 2024-12-18 16:46 | ECG ---
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
[2024-12-18] MEDS: ACETAMINOPHEN 325 MG TAB PO SCH (22:00)
[2024-12-18] MEDS: FAMOTIDINE 20 MG TAB PO SCH (22:46)
[2024-12-19 01:00] VITALS: BP 122/81; PULSE 72; RESP 16; TEMP 98.3; O2SAT 97
[2024-12-19 05:00] VITALS: BP 123/75; PULSE 71; RESP 16; TEMP 98.2; O2SAT 100
[2024-12-19 07:27] LABS: Anion Gap 8 (5-15); Basophils # (auto) 0 10 ^3/uL (0-0.2); Basophils % (auto) 0.2 % (0.0-2.0); Carbon Dioxide 28 mmol/L (20-31); Chloride 104 mmol/L (98-107); Eosinophils # (auto) 0 10 ^3/uL (0-0.8); Eosinophils % (auto) 0.5 % (0.0-7.0); Hematocrit 43.3 % (41.0-53.0); Hemoglobin 14.1 g/dL (13.5-17.5); Lymphocytes # (auto) 1.1 10 ^3/uL (0.4-5.4); Lymphocytes % (auto) 30.7 % (10.0-50.0); Mean Corpuscular Hemoglobin 29.3 pg (28.0-32.0); Mean Corpuscular Hgb Conc. 32.5 g/dL (32.0-36.0); Mean Corpuscular Volume 90.1 fL (80.0-100.0); Monocytes # (auto) 0.4 10 ^3/uL (0-1.3); Monocytes % (auto) 9.7 % (0.0-12.0); Neutrophils # (auto) 2.1 10 ^3/uL (1.6-8.6); Neutrophils % (auto) 58.9 % (37.0-80.0); Nucleated Red Blood Cells % 0.3 %; Platelet Count (auto) 193 10^3/uL (140-450); Potassium 3.4 mmol/L (3.5-5.1); Red Cell Distribution Width 14.1 % (11.8-14.3); Sodium 140 mmol/L (136-145); White Blood Cell 3.6 10^3/uL (4.4-10.8)
[2024-12-19 07:28] LABS: Calcium 9.6 mg/dL (8.7-10.4)
[2024-12-19 07:33] LABS: BUN/Creatinine Ratio 7.9 (10.0-20.0); Blood Urea Nitrogen 7 mg/dL (9-23); Glucose 93 mg/dL (74-106); Magnesium 2.1 mg/dL (1.6-2.6)
--- NOTE | 2024-12-19 07:33 | DVHCONRES ---
Date Seen: Dec 19, 2024 Resident Creating Document: HEATHER BELL Jr., MD Reason for Consultation History aorta bifem and ex bifem bypass. Presents with chest pain History of Present Illness 39-year-old male who 2002 then a trauma underwent aorta bifem bypass for traumatic injury to the aorta. 2017 underwent a X bifem bypass he states for numbness in his legs. He has been asymptomatic ever since. He presents to the emergency room with costochondritis chest pain and one day episode of nausea and vomiting. No claudication or rest pain symptoms. Past Medical History Hypertension coronary artery disease. Past Surgical History Aorta bifem Ax bifem Family History: Diabetes mellitus G8 MOTHER FH: diabetes mellitus G8 MOTHER FH: heart failure Hepatitis C G8 MOTHER Social History Nonsmoker nondrinker Allergies: Coded Allergies: NO KNOWN ALLERGIES (Unverified , 05/02/21) Home Meds Active Scripts Promethazine-Dm (Promethazine Dm 6.25-15 mg/5Ml) 1 Coreen Coreen, 5 ML PO TID, #150 ML Prov:LIANA CUBA 04/19/24 Cephalexin Monohydrate (Cephalexin) 500 Mg Cap, 1 CAP PO QID, #28 CAP Prov:LIANA CUBA 04/19/24 Ondansetron Odt 4MG Tab (ZOFRAN PO) 4 Mg Tb, 4 MG PO Q8HR PRN, #14 TAB ODT TAB-DISSOLVE IN MOUTH, THEN SWALLOW Prov:RASTA CANTU MD 03/17/24 Naproxen (NAPROSYN TABLET) 500 Mg Tb, 1 TAB PO BID PRN, #20 TAB 1 Refill Prov:RASTA CANTU MD 03/17/24 Tramadol Hcl (Tramadol Hcl) 50 Mg Tab, 50 MG PO BID for 5 Days, #10 TAB Prov:STEPHIE COLE MD 02/09/24 Metoclopramide Hcl (Reglan) 10 Mg Tab, 10 MG PO BID for 15 Days, #30 TAB Prov:STEPHIE COLE MD 02/09/24 Baclofen (Baclofen) 10 Mg Tab, 10 MG PO BID, #20 TAB Prov:LIANA CUBA 02/01/24 Ibuprofen (Ibuprofen) 800 Mg Tab, 1 TAB PO TID, #30 TAB Prov:LIANA CUBA 02/01/24 Hydrocodone-Acetaminophen (Hydrocodone Bitartrate/AC 5-325 mg) 1 Tab Tab, 1 TAB PO TID PRN, #25 TAB Prov:ISHMAEL GALINDO 12/25/23 Reported Medications Methocarbamol (Methocarbamol) 750 Mg Tab, 2 TAB PO Q6HPRN PRN for muscle spasm 12/18/24 Aspirin (Aspir-Low) 81 Mg Tab, 81 MG PO DAILY for 30 Days, MG 12/18/24 Acetaminophen (Acetaminophen Extra Stren) 500 Mg Tab, 1 TAB PO Q4HPRN PRN for MILD PAIN (1-3 PAIN SCALE) 12/18/24 Cyclobenzaprine HCl (Cyclobenzaprine Hydrochlo) 10 Mg Tab, 1 TAB PO TID PRN for muscle pain 12/18/24 Amlodipine Besylate (Amlodipine Besylate) 5 Mg Tab, 1 TAB PO DAILY 12/18/24 Discontinued Scripts Hydrocodone-Acetaminophen (Hydrocodone Bitartrate/AC 5-325 mg) 1 Tab Tab, 1 TAB PO Q8HP PRN for 2 Days, #6 TAB Prov:PORSHA QUEEN MD 12/08/24 Pantoprazole Sodium Sesquihydr (Protonix) 40 Mg Tab, 40 MG PO DAILY for 5 Days, #5 TAB Prov:MARLY CARRERO MD 07/25/24 Prednisone (Prednisone) 20 Mg Tab, 60 MG PO DAILY for 5 Days, #15 TAB Prov:LIANA CUBA 04/19/24 Clindamycin Hcl (Clindamycin Hcl) 300 Mg Cap, 1 CAP PO TID, #30 CAP Prov:LIANA CUBA 02/01/24 Promethazine-Dm (Promethazine Dm 6.25-15 mg/5Ml) 1 Coreen Coreen, 5 ML PO TID PRN, #240 ML Prov:ISHMAEL GALINDO 12/25/23 Montelukast Sodium (MONTELUKAST SODIUM) 10 Mg Tab, 1 TAB PO DAILY, #30 TAB 5 Refills Prov:ISHMAEL AGLINDO 12/25/23 Promethazine-Dm (Promethazine Dm 6.25-15 mg/5Ml) 1 Coreen Coreen, 5 ML PO TID, #150 ML Prov:LIANA CUBA 11/23/23 Clindamycin Hcl (Clindamycin Hcl) 300 Mg Cap, 1 CAP PO TID, #30 CAP Prov:LIANA CUBA PA 11/23/23 Ibuprofen (Ibuprofen) 800 Mg Tab, 1 TAB PO TID, #30 TAB Prov:LIANA CUBA PA 11/23/23 Acetaminophen W/ Codeine (Codeine/Acetaminophen) 1 Tab Tab, 1 TAB PO TIDPRN PRN for 5 Days, #15 TAB 0 Refills Prov:ALLA SPEAR AREA ATTENDANT 10/02/23 Amoxicillin Trihydrate (Amoxicillin) 500 Mg Tab, 1 TAB PO BID for 10 Days, #20 TAB 0 Refills Prov:ALLA SPEAR AREA ATTENDANT 10/02/23 Current Medications Current Medications Medications (Trade) Dose Ordered Sig/Richa Route PRN Reason Start Time Stop Time Status Last Admin Ketorolac Tromethamine (Toradol Injection) 30 mg Q6HPRN PRN IV SEVERE PAIN (7-10 PAIN SCALE) 12/18/24 15:15 12/23/24 15:14 12/19/24 05:28 Acetaminophen (Tylenol Tablet) 650 mg Q8HR PO 12/18/24 22:00 Al Hydrox/Mg Hydrox/Simethicone (Maalox Plus) 30 ml Q6HR PO 12/18/24 15:15 12/19/24 05:26 Famotidine (Pepcid Tablet) 20 mg Q12HR PO 12/18/24 22:00 12/18/24 22:46 Review of Systems All systems reviewed otherwise Vital Signs Vital Signs Date Time Temp Pulse Resp B/P (MAP) Pulse Ox O2 Delivery O2 Flow Rate FiO2 12/19/24 05:28 97.9 12/19/24 05:00 71 16 123/75 (91) 100 12/18/24 20:00 Room Air* 0 21 Physical Exam Head eyes ears nose and throat exam eyes are nonicteric conjunctiva is pink neck was supple no JVD no lymphadenopathy no carotid bruits lungs are clear to auscultation heart was regular rate and rhythm abdomen he has midline incision well healed he has no palpable pulsatile masses. Lower extremities palpable femoral and pedal pulses bilaterally. Neurologically motor and sensory grossly intact. Labs/Diagnostic Data Labs Test 12/19/24 06:07 12/18/24 18:35 12/18/24 05:31 12/17/24 09:51 Range/Units White Blood Count 3.6 L 4.4-10.8 10^3/uL Red Blood Count 4.80 4.5-5.90 10^6/uL Hemoglobin 14.1 13.5-17.5 g/dL Hematocrit 43.3 41.0-53.0 % Mean Corpuscular Volume 90.1 80.0-100.0 fL Mean Corpuscular Hemoglobin 29.3 28.0-32.0 pg Mean Corpuscular Hemoglobin Concent 32.5 32.0-36.0 g/dL Red Cell Distribution Width 14.1 11.8-14.3 % Platelet Count 193 140-450 10^3/uL Mean Platelet Volume 8.7 6.9-10.8 fL Neutrophils (%) (Auto) 58.9 37.0-80.0 % Lymphocytes (%) (Auto) 30.7 10.0-50.0 % Monocytes (%) (Auto) 9.7 0.0-12.0 % Eosinophils (%) (Auto) 0.5 0.0-7.0 % Basophils (%) (Auto) 0.2 0.0-2.0 % Neutrophils # (Auto) 2.1 1.6-8.6 10 ^3/uL Lymphocytes # (Auto) 1.1 0.4-5.4 10 ^3/uL Monocytes # (Auto) 0.4 0-1.3 10 ^3/uL Eosinophils # (Auto) 0 0-0.8 10 ^3/uL Basophils # (Auto) 0 0-0.2 10 ^3/uL Nucleated Red Blood Cells 0.3 % Sodium Level 140 136-145 mmol/L Potassium Level 3.4 L 3.5-5.1 mmol/L Chloride Level 104 98-107 mmol/L Carbon Dioxide Level 28 20-31 mmol/L Anion Gap 8 5-15 Troponin I High Sensitivity 5 </=54 ng/L Total Bilirubin 1.2 H 0.2-1.0 mg/dL Aspartate Amino Transferase (AST) 14 13-40 U/L Alanine Aminotransferase (ALT) 10 7-40 U/L Alkaline Phosphatase 82 46-116 U/L Total Protein 6.6 5.7-8.2 g/dL Albumin 4.2 3.2-4.8 g/dL Urine Color Yellow Yellow Urine Clarity Clear Clear Urine pH 7.0 5.0-9.0 Urine Specific [place] > 1.035 H 1.001-1.035 Urine Protein Trace H Negative Urine Ketones Negative Negative Urine Blood Negative Negative /uL Urine Nitrite Negative Negative Urine Bilirubin Negative Negative Urine Urobilinogen 4 H Negative mg/dL Urine Leukocyte Esterase Negative Negative /uL Urine RBC <1 0 - 3 /hpf Urine Microscopic WBC 1 0-3 /HPF Urine Squamous Epithelial Cells None seen <5 /hpf Urine Bacteria None seen None Seen /hpf Urine Glucose Normal Normal mg/dL CT CHEST, ABDOMEN AND PELVIS CLINICAL HISTORY: EVALUATE AXIALLARY FEMORAL BYPASS TECHNIQUE: Multiple contiguous axial images of the chest, abdomen and pelvis with intravenous contrast. The images were reformatted degenerate coronal and sagittal reconstructions. 100 cc of Omnipaque 300 contrast was injected intravenously. All CT scans at this medical facility are performed using dose modulation techniques as appropriate to a performed exam including the following:Automated exposure control was utilized; adjustment of the MA and/or KV according to patient size; and use of iterative reconstruction technique. Radiation Dose Information: CT Dose: CTDI volume is 7.92 mGy. Dose-length product is 573.0 mGy*cm FINDINGS: The lungs are clear without evidence of consolidation. There is no pleural effusion or pneumothorax. There is no suspicious appearing pulmonary nodule or mass. There is no evidence of a mediastinal mass or lymphadenopathy. There is no hilar or axillary lymphadenopathy. The heart size within normal limits. There is no pericardial effusion. There is Hyperdense sludge and a gallstone in the gallbladder. The liver, pancreas, kidneys, adrenal glands, and spleen appear within normal limits. There is no evidence of abdominal lymphadenopathy. There is no free fluid or catherine e air. The stomach grossly appears unremarkable.The small and large bowel loops demonstrate normal caliber and appear within normal limits.. There is a right axillary femoral vascular bypass graft and a fem-fem vascular bypass graft. There is no intraluminal contrast opacification in the grafts which again may be occluded. Again seen are postsurgical changes of the aortic bifurcation. There is a stent in the right external iliac artery. There is a stable 3.8 cm oval hypodense structure with central contrast opacification along the right iliac artery stent. There is a similar-appearing 2.3 cm structure along the left external i liac artery. The bladder appears unremarkable. Pelvic organ appears within normal limits. There is no evidence of a pelvic mass or lymphadenopathy. There is no free fluid collection. There is no acute osseous abnormality. IMPRESSION: 1. There is no acute process in the chest, abdomen and pelvis. 2. Redemonstrated are postsurgical changes of the aortic bifurcation. There are stable appearing hypodense structures along the iliac arteries with central contrast enhancement. 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 3. There are right axillary femoral and a fem-fem vascular bypass grafts. There is no intraluminal contrast opacification in the grafts which again may be occluded. HS:Y Assessment Patient with stable vascular repair of aortobifem as well as ax bifem. No further workup needed from a vascular standpoint. Recommend a nonsmoking lif estyle. Recommend routine duplex surveillance as an outpatient. Plan/Recommendation Patient with stable vascular repair of aortobifem as well as ax bifem. No further workup needed from a vascular standpoint. Recommend a nonsmoking l ifestyle. Recommend routine duplex surveillance as an outpatient. Plan discussed with: Patient HEATHER BELL Jr., MD Dec 19, 2024 07:33
[2024-12-19 08:20] VITALS: PULSE 70; RESP 16; O2SAT 97
[2024-12-19 08:35] VITALS: BP 115/76; PULSE 70; RESP 16; TEMP 98.3; O2SAT 97
[2024-12-19] MEDS ORDERED: ACET-1079 PO (12:37)
[2024-12-19] MEDS ORDERED: FAMO20TA10 PO (12:37)
--- NOTE | 2024-12-19 12:41 | DVHDS2 ---
Discharge Summary Date of Admission Dec 17, 2024 at 13:22 Date of Discharge: Dec 19, 2024 Labs/Diagnostic Data: Laboratory Results Test 12/19/24 06:07 12/18/24 18:35 12/18/24 05:31 12/17/24 09:51 White Blood Count 3.6 10^3/uL (4.4-10.8) Red Blood Count 4.80 10^6/uL (4.5-5.90) Hemoglobin 14.1 g/dL (13.5-17.5) Hematocrit 43.3 % (41.0-53.0) Mean Corpuscular Volume 90.1 fL (80.0-100.0) Mean Corpuscular Hemoglobin 29.3 pg (28.0-32.0) Mean Corpuscular Hemoglobin Concent 32.5 g/dL (32.0-36.0) Red Cell Distribution Width 14.1 % (11.8-14.3) Platelet Count 193 10^3/uL (140-450) Mean Platelet Volume 8.7 fL (6.9-10.8) Neutrophils (%) (Auto) 58.9 % (37.0-80.0) Lymphocytes (%) (Auto) 30.7 % (10.0-50.0) Monocytes (%) (Auto) 9.7 % (0.0-12.0) Eosinophils (%) (Auto) 0.5 % (0.0-7.0) Basophils (%) (Auto) 0.2 % (0.0-2.0) Neutrophils # (Auto) 2.1 10 ^3/uL (1.6-8.6) Lymphocytes # (Auto) 1.1 10 ^3/uL (0.4-5.4) Monocytes # (Auto) 0.4 10 ^3/uL (0-1.3) Eosinophils # (Auto) 0 10 ^3/uL (0-0.8) Basophils # (Auto) 0 10 ^3/uL (0-0.2) Nucleated Red Blood Cells 0.3 % Sodium Level 140 mmol/L (136-145) Potassium Level 3.4 mmol/L (3.5-5.1) Chloride Level 104 mmol/L (98-107) Carbon Dioxide Level 28 mmol/L (20-31) Anion Gap 8 (5-15) Blood Urea Nitrogen 7 mg/dL (9-23) Creatinine 0.89 mg/dL (0.700-1.30) Glomerular Filtration Rate Calc 113 mL/min (>90) BUN/Creatinine Ratio 7.9 (10.0-20.0) Serum Glucose 93 mg/dL (74-106) Calcium Level 9.6 mg/dL (8.7-10.4) Phosphorus Level 3.0 mg/dL (2.4-5.1) Magnesium Level 2.1 mg/dL (1.6-2.6) Troponin I High Sensitivity 5 ng/L (</=54) Total Bilirubin 1.2 mg/dL (0.2-1.0) Aspartate Amino Transferase (AST) 14 U/L (13-40) Alanine Aminotransferase (ALT) 10 U/L (7-40) Alkaline Phosphatase 82 U/L (46-116) Total Protein 6.6 g/dL (5.7-8.2) Albumin 4.2 g/dL (3.2-4.8) Urine Color Yellow (Yellow) Urine Clarity Clear (Clear) Urine pH 7.0 (5.0-9.0) Urine Specific [place] > 1.035 (1.001-1.035) Urine Protein Trace (Negative) Urine Ketones Negative (Negative) Urine Blood Negative /uL (Negative) Urine Nitrite Negative (Negative) Urine Bilirubin Negative (Negative) Urine Urobilinogen 4 mg/dL (Negative) Urine Leukocyte Esterase Negative /uL (Negative) Urine RBC <1 /hpf (0 - 3) Urine Microscopic WBC 1 /HPF (0-3) Urine Squamous Epithelial Cells None seen /hpf (<5) Urine Bacteria None seen /hpf (None Seen) Urine Glucose Normal mg/dL (Normal) Other Laboratory Tests 12/19/24 06:07 Brief Hx & Hospital Course: 39 yo M with hx of ax-fem and fem-fem bypass, HTN, AAA repair admitted for chest and abdominal pain. evaluated by vascular for non flowwing bypass, no intervention indicated at the moment, not taking anticoagulation. started with GI cocktail with improvement. chest pain reproducible by palpation,likely costochondritis. stable to ar home with 6 month [facility] follow up for the bypass. Condition at Discharge: Good Final Diagnosis/Problems List chest pain costochondritis Discharge Disposition: Home Discharge Instruct/Medications Diet: Consistent carbohydrate, Cardiac 2g Na,low cholest Activity: See Comment Follow Up/Referral: vascular in 6 months pcp Medications: tylenol motrin 39 Discharge Statement: "Patient was advised to return to the ER or call 911 if any headaches, dizziness, shortness of breath, chest pain, abdominal pain, bleeding, fevers, or worsening of medical condition. Patient was counseled about treatment plan, medications, possible side effects, patientverbalized understanding. All questions were answered to the best of my ability. This discharge took greater then 30 minutes in planning, reviewing documentation, counseling the patient, and discussing with other team members." ASSESSMENT ASSESSMENT Assessment chest pain costochondritis Date of Service: Dec 19, 2024 Billing Provider: PEDRO COMBS MD Common Visit Codes: 55955-SEQ/OBS DISCH DAY >30min PEDRO COMBS MD Dec 19, 2024 12:41
[2024-12-19 13:00] VITALS: BP 110/78; PULSE 77; RESP 15; TEMP 98.2; O2SAT 95
[2024-12-19 13:01] VITALS: BP 110/78; PULSE 77; RESP 15; TEMP 98.2; O2SAT 95
--- NOTE | 2024-12-19 13:22 | DVHSR ---
APPROVED REPORT EXAM: Two-dimensional and M-mode echocardiogram with Doppler and color Doppler. Blood Pressure: 123/75 mmHg INDICATION Chest Pain RISK FACTORS Height: 5'3", Weight: 186 DIMENSIONS LVDd4.9 (3.8-5.7cm)LA (2D)3.8 (1.9-4.0cm)Aortic Root3.8 (2.0-3.7cm) LVDs4.0 (2.5-4.0cm)LA (MM) (1.9-4.0cm)Aortic Cusp Exc2.1 (1.5-2.0cm) EF (%) 40.0 (55-70%)Rt. Atrium5.0 (1.9-4.0cm)Asc. Aorta3.6 cm IVSd1.1 (0.7-1.1cm)RV (D)3.9 (1.8-2.4cm) PWd0.8 (0.7-1.1cm) Mitral Valve MitralMitral Stenosis E wave0.54m/sMV Mean GR.mmHg A wave0.66m/sMV Peak GR.mmHg E/A ratio0.82D MVAcm2 DECEL [id number] 1/2 [place] Aortic Valve Aortic ValveAortic Stenosis V10.72m/Little Mean GR.3mmHg V21.04m/Little [place] GR.4mmHg LVOT Diameter2.5 (1.8-2.4cm)Doppler AVA3.40cm2 Pulmonic Valve V20.94m/s Conclusion lvef 45% by visual estimate mild global dysfunction normal rv function no severe valve abnormaliteis noted left atrium enlarged mild
== END 2024-12-19 14:12 | disposition home or self-care (01) | DRG 241 ==
LOC: ER 08:49 → OVERFLOW 13:22 → WEST WING 22:34
PROVIDERS: ADMIT Student in an Organized Health Care Education/Training Program; ATTEND Student in an Organized Health Care Education/Training Program
DX: K29.70 Gastritis, unspecified, without bleeding (principal); F17.210 Nicotine dependence, cigarettes, uncomplicated; M94.0 Chondrocostal junction syndrome [Tietze]; I10 Essential (primary) hypertension; K80.20 Calculus of gallbladder without cholecystitis without obstruction; I25.10 Atherosclerotic heart disease of native coronary artery without angina pectoris; Z86.79 Personal history of other diseases of the circulatory system; Z79.899 Other long term (current) drug therapy
CPT/HCPCS: 36415; 71260; 74177; 80048; 80053; 81001; 83735; 84100; 84484; 85025; 93005; 93306; 96361; 96365; 96375; G0378; J1885; J2470; J3490

== ENCOUNTER 2025-01-27 17:30 | Emergency (ER) | payer MEDICAID, OTHER ==
[~2025-01-27] VITALS: Ht 175.3 cm; Wt 81.8 kg
[~2025-01-27 17:30] MED LIST changes: +ACET-1079 PO; -ACET30TA15 PO; +AMLO1TAB22 PO; -AMOX500T3 PO; +ASPI-543 PO; -CEPH500C PO; -CLIN1CAP70 PO; +CYCL-611 PO; +FAMO20TA10 PO; -IBUP-1456 PO; +METH-1182 PO; -MONT-8 PO; -NAP500T PO; -PANT40TA2 PO; -PRED20TA2 PO; -TRAM50TA2 PO; -ZOFR4T PO
[2025-01-27 17:32] VITALS: BP 132/92; RESP 18; TEMP 99; O2SAT 98
[2025-01-27 17:39] VITALS: PULSE 83
--- NOTE | 2025-01-27 18:03 | ED.PDOC ---
HPI Comments 39 y.o male with extensive cardiovascular medical history secondary to trauma, presents to the ED via EMS for a chief complaint left sided chest pain associated with left arm numbness and lightheadedness that stared earlier today at work. Patient reports numbness first presented to his left arm, radiated up to his shoulder and then left side of chest and neck, states it feels swollen and was throbbing. Patient also mentioned his apple watch reading a heart rate of 130 and was concerned so he called 911. Patient reports no heavy or strenuous activity at work today. Patient was advised to take three 81mg ASA while paramedics arrived and also took one NTG, which he states made his heart rate come down. Pt now rates pain 5/10 and denies any SOB, nausea, vomiting, fever, chills or leg swelling. Patient's cardiac history includes: ruptured abdominal aortic aneurysm s/p traumatic injuries in 2002 diagnosed at [facility], was repaired with a graft which was later found to be infected in 2013 and revised at [facility]. In 2019 he had vascular stent placement due to occlusion/lack of blood flow to his lower extremities, then CABG x 3. Patient was also seen at [facility] yesterday for abdominal pain, had an X ray done and was told he was constipated. Patient was discharged and prescribed Dicyclomine in which he has been taking. Patient at this time is still experiencing pressure to the upper abdomen region but is mild compared to yesterday. He denies any diarrhea, nausea, vomiting, or recent illness. Chief Complaint: Chest Pain Time Seen by MD: 18:05 Primary Care Provider: NONE Reviewed Notes: Nurses Notes, Medications, Allergies Allergies: Coded Allergies: NO KNOWN ALLERGIES (Unverified , 05/02/21) Home Meds Active Scripts Acetaminophen (Tylenol) 325 Mg Tb, 325 MG PO QID for 10 Days, #40 TAB Prov:PEDRO COMBS MD 12/19/24 Famotidine (PEPCID TABLET) 20 Mg Tb, 1 TAB PO BID for 30 Days, #60 TAB 0 Refills Prov:PEDRO COMBS MD 12/19/24 Promethazine-Dm (Promethazine Dm 6.25-15 mg/5Ml) 1 Coreen Coreen, 5 ML PO TID, #150 ML Prov:LIANA CUBA 04/19/24 Metoclopramide Hcl (Reglan) 10 Mg Tab, 10 MG PO BID for 15 Days, #30 TAB Prov:STEPHIE COLE MD 02/09/24 Baclofen (Baclofen) 10 Mg Tab, 10 MG PO BID, #20 TAB Prov:LIANA CUBA 02/01/24 Hydrocodone-Acetaminophen (Hydrocodone Bitartrate/AC 5-325 mg) 1 Tab Tab, 1 TAB PO TID PRN, #25 TAB Prov:ISHMAEL GALINDO 12/25/23 Reported Medications Methocarbamol (Methocarbamol) 750 Mg Tab, 2 TAB PO Q6HPRN PRN for muscle spasm 12/18/24 Aspirin (Aspir-Low) 81 Mg Tab, 81 MG PO DAILY for 30 Days, MG 12/18/24 Cyclobenzaprine HCl (Cyclobenzaprine Hydrochlo) 10 Mg Tab, 1 TAB PO TID PRN for muscle pain 12/18/24 Amlodipine Besylate (Amlodipine Besylate) 5 Mg Tab, 1 TAB PO DAILY 12/18/24 Information Source: Patient Mode of Arrival: EMS Severity: Moderate Timing: Hours Duration: Since onset Location: Substernal Radiation: Shoulder (L), Arm (L) Quality: Pressure Onset: At Rest Cardiac Risk Factors: HTN PE Risk Factors: None History of: Similar pain in past Modifying Factors: Nothing Past Medical History PAST MEDICAL HISTORY: CAD, Gallstones, HTN Past Medical History (Other): traumatic ruptured AAA Surgical History: PTCA Surgical History (Other): aortic graft, vascular stents, CABG x 3 Family History Family History: Family hx of DM, Family hx of Cancer, Family hx of heart jhonatan Social History Smoker: Cigarettes Alcohol: Denies ETOH Use Drugs: Cocaine, Marijuana Lives In: Home Constitutional: denies: chills, diaphoresis, fatigue, fever, malaise, sweats, weakness, others EENTM: denies: blurred vision, double vision, ear bleeding, ear discharge, ear drainage, ear pain, ear ringing, eye pain, eye redness, hearing loss, mouth pain, mouth swelling, nasal discharge, nose bleeding, nose congestion, nose pain, photophobia, tearing, throat pain, throat swelling, voice changes, others Respiratory: denies: cough, hemoptysis, orthopnea, SOB at rest, shortness of breath, SOB with excertion, stridor, wheezing, others Cardiovascular: reports: chest pain, left arm pain, palpitations; denies: dizzy spells, diaphoresis, Dyspnea on exertion, edema, irregular heart beat, lightheadedness, PND, syncope, others Gastrointestinal: denies: abdomen distended, abdominal pain, blood streaked bowels, constipated, diarrhea, dysphagia, difficulty swallowing, hematemesis, melena, nausea, poor appetite, poor fluid intake, rectal bleeding, rectal pain, vomiting, others Genitourinary: denies: burning, dysuria, flank pain, frequency, hematuria, incontinence, penile discharge, penile sore, pain, testicle pain, testicle swelling, urgency, others Neurological: denies: dizziness, fainting, headache, left sided numbness, left sided weakness, numbness, paresthesia, pre-existing deficit, right sided numbness, right sided weakness, seizure, speech problems, tingling, tremors, weakness, others Musculoskeletal: denies: back pain, gout, joint pain, joint swelling, muscle pain, muscle stiffness, neck pain, others Integumetry: denies: bruises, change in color, change in hair/nails, dryness, laceration, lesions, lumps, rash, wounds, others Allergic/Immunocompromised: denies: Difficulty Healing, Frequent Infections, Hives, Itching, others Hematologic/Lymphatic: denies: anemia, blood clots, easy bleeding, easy bruising, swollen glands, others Endocrine: denies: excessive hunger, excessive sweating, excessive thirst, excessive urination, flushing, intolerance to cold, intolerance to heat, unexplained weight gain, unexplained weight loss, others Psychiatric: denies: anxiety, bipolar disorder, depression, hopeless, panic disorder, schizophrenia, sleepless, suicidal, others All Other Systems: Reviewed and Negative Physical Exam General Appearance: No Apparent Distress HEENT: Other (Pupils and face symmetric. Moist mucous membranes.) Neck: Full Range of Motion, Normal Inspection Respiratory: Lungs Clear, No Accessory Muscle Use, No Respiratory Distress, Normal Breath Sounds, Other (Left upper anterior chest wall tenderness to palpation) Cardiovascular: No Edema, No JVD, Regular Rate/Rhythm Breast Exam: Deferred Gastrointestinal: Non Tender, Soft Genitalia: Deferred Pelvic: Deferred Rectal: Deferred Extremities: Normal inspection, Normal range of motion, Non-tender, No pedal edema Neurologic: Alert (Oriented x4), Normal Affect, Normal Mood, Other (Ambulatory) Cerebellar Function: NOT DONE Reflexes: NOT DONE Skin: Dry, Normal Color, Warm Peripheral Pulses: 2+ Radial (R), 2+ Radial (L) Lymphatic: NOT DONE EKG EKG : Comments Sinus rhythm, rate 83, normal intervals, normal axis, Q-wave in lead 3, nonspecific T changes Was a procedure done? Was a procedure done?: No CP Differential Dx Differential Diagnosis: Angina, Anxiety / Panic Attack, Heart Failure, NC, Pulmonary Embolus Differential Diagnosis: CHF Differential Diagnosis: Aortic dissection, Chest Wall Pain, Costochondritis, Esophageal reflux/spasm, Gastritis, Pericarditis, Other (Aortic graft failure or infection, among others) X-Ray, Labs, Meds, VS Vital Signs Date Time Temp Pulse Resp B/P (MAP) Pulse Ox O2 Delivery O2 Flow Rate FiO2 01/27/25 17:39 83 01/27/25 17:32 99.0 88 18 132/92 (105) 98 99.0 Lab Test 01/27/25 18:57 01/27/25 18:08 Range/Units Troponin I High Sensitivity 3 L 3 L </=54 ng/L White Blood Count 5.8 4.4-10.8 10^3/uL Red Blood Count 5.09 4.5-5.90 10^6/uL Hemoglobin 15.0 13.5-17.5 g/dL Hematocrit 45.4 41.0-53.0 % Mean Corpuscular Volume 89.1 80.0-100.0 fL Mean Corpuscular Hemoglobin 29.5 28.0-32.0 pg Mean Corpuscular Hemoglobin Concent 33.1 32.0-36.0 g/dL Red Cell Distribution Width 13.5 11.8-14.3 % Platelet Count 170 140-450 10^3/uL Mean Platelet Volume 8.6 6.9-10.8 fL Neutrophils (%) (Auto) 77.1 37.0-80.0 % Lymphocytes (%) (Auto) 13.9 10.0-50.0 % Monocytes (%) (Auto) 8.6 0.0-12.0 % Eosinophils (%) (Auto) 0.2 0.0-7.0 % Basophils (%) (Auto) 0.2 0.0-2.0 % Neutrophils # (Auto) 4.4 1.6-8.6 10 ^3/uL Lymphocytes # (Auto) 0.8 0.4-5.4 10 ^3/uL Monocytes # (Auto) 0.5 0-1.3 10 ^3/uL Eosinophils # (Auto) 0 0-0.8 10 ^3/uL Basophils # (Auto) 0 0-0.2 10 ^3/uL Nucleated Red Blood Cells 0.1 % Sodium Level 140 136-145 mmol/L Potassium Level 3.7 3.5-5.1 mmol/L Chloride Level 107 98-107 mmol/L Carbon Dioxide Level 25 20-31 mmol/L Anion Gap 8 5-15 Blood Urea Nitrogen 5 L 9-23 mg/dL Creatinine 0.91 0.700-1.30 mg/dL Glomerular Filtration Rate Calc 111 >90 mL/min BUN/Creatinine Ratio 5.5 L 10.0-20.0 Serum Glucose 89 74-106 mg/dL Calcium Level 10.0 8.7-10.4 mg/dL Total Bilirubin 0.7 0.2-1.0 mg/dL Aspartate Amino Transferase (AST) 16 13-40 U/L Alanine Aminotransferase (ALT) 12 7-40 U/L Alkaline Phosphatase 93 46-116 U/L B-Type Natriuretic Peptide 5.41 0-100 pg/mL Total Protein 7.6 5.7-8.2 g/dL Albumin 4.8 3.2-4.8 g/dL Lipase 34 12-53 U/L Beta HCG, Quantitative 0.2 0-2 mIU/mL X-Ray, Labs, Meds, VS Comment 39-year-old male with history of hypertension and extensive cardiovascular history including ruptured aortic aneurysm with graft, vascular stents, and CABG x3, complaining of chest pain and rapid heart rate Vitals remarkable for BP 132/92 Exam remarkable for reproducible pain when palpating the left upper chest wall Rhythm strip independently interpreted by me: Sinus rhythm, rate 83, no ectopy. CT angio chest, abdomen and pelvis: Results pending CBC normal, CMP unremarkable, lipase normal, BNP and troponin negative Patient stated he took aspirin 324 mg p.o. and 1 sublingual nitroglycerin prior to arrival Prior to completion of workup and treatment, the patient stated he needed to leave, as his ride had to leave. I was not advised until after patient had signed out against medical advice and left the emergency room, so did not have the opportunity to advise him of the risks, benefits and alternatives to treatment. Time of 1ST Reevaluation: 19:32 Reevaluation 1ST: Unchanged Patient Education/Counseling: Diagnosis, Treatment Family Education/Counseling: No Family Present Departure 1 Departure Time of Disposition: 21:00 Impression: Primary Impression: Acute chest pain Disposition: LEFT AGAINST MEDICAL ADVICE Condition: Fair Critical Care Note Critical Care Time?: No Stability Stability form required: No Heart Score Heart Score: Heart Score Response (Comments) Value History Moderate Suspicious [address]-Deviation 2 Age <45 0 Risk Factors >3 or Hx ASHD 2 Troponin Normal limit 0 Total 5 I personally scribed for LOLLY PUTNAM MD ([facility]) on 01/27/25 at 18 :03. Electronically submitted by Mari Ruby ([facility]). I personally scribed for LOLLY PUTNAM MD ([facility]) on 01/27/25 at 19:45. Electronically submitted by Mari Ruby ([facility]). LOLLY PUTNAM MD January 27, 2025 18:03
[2025-01-27 18:19] LABS: Basophils # (auto) 0 10 ^3/uL (0-0.2); Basophils % (auto) 0.2 % (0.0-2.0); Eosinophils # (auto) 0 10 ^3/uL (0-0.8); Eosinophils % (auto) 0.2 % (0.0-7.0); Hematocrit 45.4 % (41.0-53.0); Lymphocytes # (auto) 0.8 10 ^3/uL (0.4-5.4); Lymphocytes % (auto) 13.9 % (10.0-50.0); Mean Corpuscular Hemoglobin 29.5 pg (28.0-32.0); Mean Corpuscular Hgb Conc. 33.1 g/dL (32.0-36.0); Mean Corpuscular Volume 89.1 fL (80.0-100.0); Monocytes # (auto) 0.5 10 ^3/uL (0-1.3); Monocytes % (auto) 8.6 % (0.0-12.0); Neutrophils # (auto) 4.4 10 ^3/uL (1.6-8.6); Neutrophils % (auto) 77.1 % (37.0-80.0); Nucleated Red Blood Cells % 0.1 %; Platelet Count (auto) 170 10^3/uL (140-450); Red Blood Cells 5.09 10^6/uL (4.5-5.90); Red Cell Distribution Width 13.5 % (11.8-14.3); White Blood Cell 5.8 10^3/uL (4.4-10.8)
[2025-01-27 18:40] LABS: Alanine Aminotransferase 12 U/L (7-40); Albumin 4.8 g/dL (3.2-4.8); Alkaline Phosphatase 93 U/L (46-116); Anion Gap 8 (5-15); Aspartate Aminotransferase 16 U/L (13-40); BUN/Creatinine Ratio 5.5 (10.0-20.0); Carbon Dioxide 25 mmol/L (20-31); Chloride 107 mmol/L (98-107); Glucose 89 mg/dL (74-106); Lipase 34 U/L (12-53); Potassium 3.7 mmol/L (3.5-5.1); Sodium 140 mmol/L (136-145); Total Protein 7.6 g/dL (5.7-8.2)
[2025-01-27 18:41] LABS: Bilirubin, Total 0.7 mg/dL (0.2-1.0)
[2025-01-27 18:47] LABS: Blood Urea Nitrogen 5 mg/dL (9-23)
[2025-01-27] MEDS: IOHEXOL 350 MG/ML 100ML IJ ONE (19:02)
--- NOTE | 2025-01-28 02:04 | DVH ---
Exam: CT CT CHEST/AB/PL W CON- IV ONLY History: cp, ab pn, hx ruptured ao AAA s/p graft/stents Comparison Study: CT CT CHEST/AB/PL W CON- IV ONLY on DOS: 12/17/24, CT CT AB PEL WITH IV CON ONLY on DOS: 12/08/24, CT CT AB PEL WITH IV CON ONLY on DOS: 02/09/24, CT AB PEL WITH IV CON ONLY on DOS: None available at time of dictation. Technique: Multidetector spiral CT of the chest, abdomen and pelvis was performed from lower neck to pubic symphysis. Intravenous contrast was administered during this examination. Portal venous imag ing was obtained. Axial, coronal and sagittal multiplanar reformats were performed by the technologis t on a separate workstation. Radiation Dose : 1. Chest/Abdomen/Pelvis: CTDIvol 29.6 mGy, DLP 1221.34 mGy*cm. Findings: Lower neck: Normal thyroid. Lungs: No focal consolidation, pleural effusion or pneumothorax. Heart/Vascular Structures: Normal heart size. No pericardial effusion. Lymph Nodes: No adenopathy Pleura: No pleural effusion or significant pneumothorax. Liver: The liver is normal in size. No focal lesions. Normal hepatic vascular enhancement. Gallbladder and Biliary Tree: Cholelithiasis. Spleen: Unremarkable Pancreas: The pancreas is normal in appearance without focal lesions or abnormal enhancement. Adrenal Glands: Unremarkable Kidneys: Kidneys demonstrate normal symmetric enhancement without focal lesions, calculi or hydroneph rosis. Bladder: Unremarkable Bowel: The stomach is grossly normal in appearance. Small bowel and colon are normal in caliber and d istribution. The appendix is normal. Ascites: Absent Lymphadenopathy: No mesenteric, retroperitoneal or periportal lymphadenopathy. Abdominal Wall and Mesentery: Unremarkable. Vasculature: Right axillary-femoral vascular bypass graft and fem-fem vascular bypass grafts redemons trated without intraluminal contrast opacification within the grafts, consistent with persistent occl usion/ nonvascularization. Postsurgical changes at the level of the aortic bifurcation where there is a stent within the right e xternal iliac artery. Grossly stable appearing 4.0 x 3.4 cm oval predominantly hypoattenuating, mixed density structure with minimal central contrast opacification adjacent to the right iliac artery jose nt. 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 Pelvic Organs: Unremarkable Musculoskeletal: No aggressive focal bony lesions, acute fractures or dislocation. IMPRESSION: 1. No acute findings involving the chest, abdomen or pelvis. 2. Stable appearing postsurgical changes involving the aortic bifurcation with stable appearing mixed attenuation predominantly hypodense ovoid structures adjacent to the bilateral iliac arteries exhibi ting central contrast enhancement, most consistent with predominantly thrombosed aneurysms. 3. Right ax-fem and fem-fem vascular bypass grafts without evidence of intraluminal contrast opacific ation consistent with graft occlusion.
--- NOTE | 2025-01-30 20:46 | ECG ---
[facility] Test Date: 2025-01-27 Test Time: 17:39:13 Pat Name: MICHAEL PATEL Department: ED Room: Gender: M It Service Continuity Supervisor: ZULMA : 1985 Requested By: LOLLY GUERIN Order Number: [id number] Reading MD: Javid Graham Measurements Intervals [place] Rate: 83 P: 46 NM: 151 QRS: 21 QRSD: 91 T: -11 QT: 362 QTc: 426 Interpretive Statements Sinus rhythm Abnormal R-wave progression, early transition Borderline T abnormalities, inferior leads Electronically Signed On 01-30-2025 20:46:15 PDT by Javid Graham Please click the below link to view image of tracing.
== END 2025-01-27 20:59 | disposition left against medical advice (07) ==
LOC: EDUNIT# 17:30 → EDBD 17:30 → ER 17:30
DX: R07.89 Other chest pain (principal); I10 Essential (primary) hypertension; I25.10 Atherosclerotic heart disease of native coronary artery without angina pectoris; F17.210 Nicotine dependence, cigarettes, uncomplicated; F12.90 Cannabis use, unspecified, uncomplicated; Z95.1 Presence of aortocoronary bypass graft; Z79.899 Other long term (current) drug therapy; Z79.82 Long term (current) use of aspirin
CPT/HCPCS: 36415; 71260; 74177; 80053; 83690; 83880; 84484; 85025; 93005; 99285; Q9967; 84702

== ENCOUNTER 2025-01-28 08:39 | Inpatient (IN) | payer MEDICAID, OTHER ==
[~2025-01-28] VITALS: Ht 175.3 cm; Wt 83.5 kg
--- NOTE | 2025-01-28 10:05 | ED.PDOC ---
GI ASSESSMENT HPI Comments 39 y/o M, with PMHx of HTN, CAD, and chololithiasis presents to the ED for CC of abdominal pain. Patient states, that he has been experiencing diffuse abdominal pain x1day with associated constipation x3ays. Patient relays, that he was seen at [facility] yesterday (01/27/25) for symptoms; patient left AMA. No other symptoms or modifying factors present at this time. Chief Complaint: Abdominal Pain Time Seen by MD: 09:50 Primary Care Provider: NONE Reviewed Notes: Nurses Notes, Medications, Allergies Allergies: Coded Allergies: NO KNOWN ALLERGIES (Unverified , 05/02/21) Home Meds Active Scripts Acetaminophen (Tylenol) 325 Mg Tb, 325 MG PO QID for 10 Days, #40 TAB Prov:PEDRO COMBS MD 12/19/24 Famotidine (PEPCID TABLET) 20 Mg Tb, 1 TAB PO BID for 30 Days, #60 TAB 0 Refills Prov:PEDRO COMBS MD 12/19/24 Promethazine-Dm (Promethazine Dm 6.25-15 mg/5Ml) 1 Coreen Coreen, 5 ML PO TID, #150 ML Prov:LIANA CUBA 04/19/24 Metoclopramide Hcl (Reglan) 10 Mg Tab, 10 MG PO BID for 15 Days, #30 TAB Prov:STEPHIE COLE MD 02/09/24 Baclofen (Baclofen) 10 Mg Tab, 10 MG PO BID, #20 TAB Prov:LIANA CUBA 02/01/24 Hydrocodone-Acetaminophen (Hydrocodone Bitartrate/AC 5-325 mg) 1 Tab Tab, 1 TAB PO TID PRN, #25 TAB Prov:ISHMAEL GALINDO 12/25/23 Reported Medications Methocarbamol (Methocarbamol) 750 Mg Tab, 2 TAB PO Q6HPRN PRN for muscle spasm 12/18/24 Aspirin (Aspir-Low) 81 Mg Tab, 81 MG PO DAILY for 30 Days, MG 12/18/24 Cyclobenzaprine HCl (Cyclobenzaprine Hydrochlo) 10 Mg Tab, 1 TAB PO TID PRN for muscle pain 12/18/24 Amlodipine Besylate (Amlodipine Besylate) 5 Mg Tab, 1 TAB PO DAILY 12/18/24 Information Source: Patient Mode of Arrival: Ambulatory Timing: Hours Duration: Since onset Prehospital treatment: None Quality: Cramping Vomitus: None Stool: Normal Severity: Moderate Recent: None Recent Hx of: None Pain Location: Diffuse Modifying Factors: Nothing Associated sign and symptoms: Abdominal Pain Past Medical History PAST MEDICAL HISTORY: CAD, Gallstones, HTN Surgical History: PTCA Family History Family History: Family hx of DM, Family hx of Cancer, Family hx of heart jhonatan Social History Smoker: Cigarettes Alcohol: Denies ETOH Use Drugs: Cocaine, Marijuana Lives In: Home Physical Exam General Appearance: No Apparent Distress, Normal HEENT: Normal ENT Inspection, Pharynx Normal, TMs Normal Neck: Full Range of Motion, Non-Tender, Normal, Normal Inspection Respiratory: Chest Non-Tender, Lungs Clear, No Accessory Muscle Use, No Respiratory Distress, Normal Breath Sounds Cardiovascular: No Edema, No JVD, No Murmur, No Gallop, Normal Peripheral Pulses, Regular Rate/Rhythm Breast Exam: Deferred Gastrointestinal: No Organomegaly, Non Tender, No Pulsatile Mass, Normal Bowel Sounds, Soft Genitalia: Deferred Pelvic: Deferred Rectal: Deferred Extremities: No calf tenderness, Normal capillary refill, Normal inspection, N ormal range of motion, Non-tender, No pedal edema Musculoskeletal : Apperance: Normal Neurologic: Alert, 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 Was a procedure done?: No GI differential Dx Differential Diagnosis: GI hemorrhage, UTI, Urolithiasis, Other (Mi, stent malfunction) X-Ray, Labs, Meds, VS Vital Signs Date Time Temp Pulse Resp B/P (MAP) Pulse Ox O2 Delivery O2 Flow Rate FiO2 01/28/25 09:35 98.1 78 15 152/87 (108) 99 98.1 01/28/25 09:35 Room Air* 0 21 01/28/25 08:49 98.2 90 16 131/88 (102) 97 98.2 Lab Test 01/28/25 10:58 01/28/25 09:58 Range/Units Troponin I High Sensitivity Pending 5 </=54 ng/L White Blood Count 4.6 4.4-10.8 10^3/uL Red Blood Count 4.92 4.5-5.90 10^6/uL Hemoglobin 14.5 13.5-17.5 g/dL Hematocrit 43.4 41.0-53.0 % Mean Corpuscular Volume 88.4 80.0-100.0 fL Mean Corpuscular Hemoglobin 29.6 28.0-32.0 pg Mean Corpuscular Hemoglobin Concent 33.5 32.0-36.0 g/dL Red Cell Distribution Width 13.1 11.8-14.3 % Platelet Count 175 140-450 10^3/uL Mean Platelet Volume 8.3 6.9-10.8 fL Neutrophils (%) (Auto) 69.9 37.0-80.0 % Lymphocytes (%) (Auto) 19.7 10.0-50.0 % Monocytes (%) (Auto) 9.7 0.0-12.0 % Eosinophils (%) (Auto) 0.3 0.0-7.0 % Basophils (%) (Auto) 0.4 0.0-2.0 % Neutrophils # (Auto) 3.2 1.6-8.6 10 ^3/uL Lymphocytes # (Auto) 0.9 0.4-5.4 10 ^3/uL Monocytes # (Auto) 0.4 0-1.3 10 ^3/uL Eosinophils # (Auto) 0 0-0.8 10 ^3/uL Basophils # (Auto) 0 0-0.2 10 ^3/uL Nucleated Red Blood Cells 0.2 % Sodium Level 140 136-145 mmol/L Potassium Level 3.7 3.5-5.1 mmol/L Chloride Level 103 98-107 mmol/L Carbon Dioxide Level 30 20-31 mmol/L Anion Gap 7 5-15 Blood Urea Nitrogen 7 L 9-23 mg/dL Creatinine 1.03 0.700-1.30 mg/dL Glomerular Filtration Rate Calc 96 >90 mL/min BUN/Creatinine Ratio 6.8 L 10.0-20.0 Serum Glucose 90 74-106 mg/dL Calcium Level 10.0 8.7-10.4 mg/dL Time of 1ST Reevaluation: 10:20 Reevaluation 1ST: Improved Patient Education/Counseling: Diagnosis, Treatment Family Education/Counseling: No Family Present Departure 1 Departure Time of Disposition: 11:35 (Patient presented with chest pain that was concerning for possible STEMI, ACS, PE, Pneumonia, Muscle Strain, COPD, Dissection. Data: 1. I ordered and reviewed the result of at least 3 labs including a CBC, BMP, and Troponin. 2. I independently interpreted the following tests: EKG which shows sinus arrhythmia and CT chest from yesterday shows clotted aneurysm.Risk:This patient has a high risk of morbidity due to further diagnostic testing or treatment and may suffer from an acute cardiac or respiratory disorder. Workup reveals concern for ACS and patient should be admitted for further workup and possible expert consultation. ) Impression: Primary Impression: Acute chest pain Disposition: ADMITTED INPATIENT Admit to: Med Surg Condition: Serious Critical Care Note Critical Care Time?: Yes Critical care comment: Acute chest pain Authorized and Performed by: Joel Thomson MD Total critical care time: Approximately 36 minutes Due to a high probability of clinically significant, life threatening deterioration, the patient required my highest level of preparedness to intervene emergently and I personally spent this critical care time directly and personally managing the patient. This critical care time included obtaining a history; examining the patient; pulse oximetry; ordering and review of studies; arranging urgent treatment with development of a management plan; evaluation of patient's response to treatment; frequent reassessment; and, discussions with other providers. This critical care time was performed to assess and manage the high probability of imminent, life-threatening deterioration that could result in multi-organ failure. It was exclusive of separately billable procedures and treating other patients and teaching time. Please see my other sections and the rest of the note for further information on patient assessment and treatment. Stability Stability form required: No I personally scribed for JOEL THOMSON MD ([email or web address]) on 01/28/25 at 10:05. Electronically submitted by Hermelinda Grande ([email or web address]). JOEL THOMSON MD January 28, 2025 10:05
[2025-01-28 10:08] LABS: Basophils # (auto) 0 10 ^3/uL (0-0.2); Basophils % (auto) 0.4 % (0.0-2.0); Eosinophils # (auto) 0 10 ^3/uL (0-0.8); Eosinophils % (auto) 0.3 % (0.0-7.0); Hematocrit 43.4 % (41.0-53.0); Hemoglobin 14.5 g/dL (13.5-17.5); Lymphocytes # (auto) 0.9 10 ^3/uL (0.4-5.4); Lymphocytes % (auto) 19.7 % (10.0-50.0); Mean Corpuscular Hemoglobin 29.6 pg (28.0-32.0); Mean Corpuscular Hgb Conc. 33.5 g/dL (32.0-36.0); Mean Corpuscular Volume 88.4 fL (80.0-100.0); Monocytes # (auto) 0.4 10 ^3/uL (0-1.3); Monocytes % (auto) 9.7 % (0.0-12.0); Neutrophils # (auto) 3.2 10 ^3/uL (1.6-8.6); Neutrophils % (auto) 69.9 % (37.0-80.0); Nucleated Red Blood Cells % 0.2 %; Platelet Count (auto) 175 10^3/uL (140-450); Red Blood Cells 4.92 10^6/uL (4.5-5.90); Red Cell Distribution Width 13.1 % (11.8-14.3); White Blood Cell 4.6 10^3/uL (4.4-10.8)
[2025-01-28 10:16] LABS: Chloride 103 mmol/L (98-107); Potassium 3.7 mmol/L (3.5-5.1); Sodium 140 mmol/L (136-145)
[2025-01-28 10:18] LABS: Anion Gap 7 (5-15); Carbon Dioxide 30 mmol/L (20-31)
[2025-01-28 10:23] LABS: BUN/Creatinine Ratio 6.8 (10.0-20.0); Glucose 90 mg/dL (74-106)
[2025-01-28 10:25] LABS: Blood Urea Nitrogen 7 mg/dL (9-23)
[2025-01-28 14:14] VITALS: BP 134/80; PULSE 68; RESP 18; TEMP 98.7; O2SAT 100
--- NOTE | 2025-01-28 14:36 | DVHHP2 ---
History of Present Illness Reason for Visit: abd pain History of Present Illness 39-year-old male with a complex past medical history including hypertension, coronary artery disease (CAD), gallstones, abdominal aortic aneurysm (AAA) status post repair, PTCA, and bypass femoral artery grafting, who presents with complaints of epigastric abdominal pain, chest wall pain, and constipation. He was evaluated at this hospital yesterday but left AMA due to transportation issues with his cousin. He subsequently went to [facility], where he was given a laxative (likely MiraLAX), which resulted in a large bowel movement. However, he reports continued epigastric discomfort around his surgical scar, along with left arm and neck pain. The patient attributes the upper body symptoms to recent dancing, which he believes strained his muscles. He denies vomiting, diarrhea, hematochezia, melena, fevers, chills, chest pain at rest, or shortness of breath. He notes that movement worsens his chest/shoulder discomfort, while rest improves it. He was previously diagnosed in November 2024 with costochondritis. In the ED today, his CBC, BMP, and three sets of troponins were unremarkable. CT abdomen/pelvis was also negative for acute pathology. He is being admitted for pain management and observation Past Medical History See HPI above Past Surgical History See HPI above Family History Reviewed, non-contributory to the management of this case. Past Social History The patient lives at home, denies smoking, alcohol or illicit drugs abuse. Review of Systems Constitutional: No: Fever, Chills, Sweats, Weakness, Malaise, Other Eyes: No: Pain, Vision change, Conjunctivae inflammation, Eyelid inflammation, Other, Redness ENT: No: Ear pain, Ear discharge, Nose pain, Nose discharge, Nose congestion, Mouth pain, Mouth swelling, Throat pain, Throat swelling, Other Respiratory: No: Cough, Dry, Shortness of breath, SOB with excertion, Wheezing, Hemoptysis, Pleuritic Pain, Sputum, Wheezing, Other Cardiovascular: No: Chest Pain, Palpitations, Orthopnea, Paroxysmal Noc. Dyspnea, Edema, Lt Headedness, Other Gastrointestinal: Abdominal Pain; No: Nausea, Vomiting, Diarrhea, Constipation, Melena, Hematochezia, Other Genitourinary: No Dysuria, No Frequency, No Incontinence, No Hematuria, No Retention, No Other Musculoskeletal: No: other, neck pain, shoulder pain, arm pain, back pain, hand pain, leg pain, foot pain Skin: No: Rash, Lesions, Jaundice, Bruising, Other Neurological: No: Weakness, Numbness, Incoordination, Change in speech, Confusion, Seizures, Other Allergies: Coded Allergies: NO KNOWN ALLERGIES (Unverified , 05/02/21) Exam Vital Signs Vital Signs Date Time Temp Pulse Resp B/P (MAP) Pulse Ox O2 Delivery O2 Flow Rate FiO2 01/28/25 14:14 98.7 68 18 134/80 (98) 100 98.7 01/28/25 09:35 Room Air* 0 21 General Appearance: Alert, Oriented X3, Cooperative, No acute distress HEENT: Atraumatic, PERRLA, EOMI, Mucous membr. moist/pink Respiratory: Clear to auscultation, Normal air movement Cardiovascular: Regular rate, Normal S1, Normal S2, No murmurs Abdominal: Normal bowel sounds, Soft, No tenderness, No hepatospenomegaly, No masses Extremities: No clubbing, No cyanosis, No edema, Normal pulses, No tenderness /swelling Skin: No rashes, No breakdown, No significant lesion Neuro: Normal gait, Normal speech, Strength at 5/5 X4 ext, Normal tone, Sensation intact, Cranial nerves 3-12 NL Psych/Mental Status: Mental status NL, Mood NL Labs/Xrays CT scan abdomen pelvis unremarkable I reviewed labs, imaging CT scan abdomen pelvis, EKG and all diagnostic studies on this patient from ED records and the medical chart Labs Test 01/28/25 12:42 01/28/25 09:58 Range/Units Troponin I High Sensitivity 4 </=54 ng/L White Blood Count 4.6 4.4-10.8 10^3/uL Red Blood Count 4.92 4.5-5.90 10^6/uL Hemoglobin 14.5 13.5-17.5 g/dL Hematocrit 43.4 41.0-53.0 % Mean Corpuscular Volume 88.4 80.0-100.0 fL Mean Corpuscular Hemoglobin 29.6 28.0-32.0 pg Mean Corpuscular Hemoglobin Concent 33.5 32.0-36.0 g/dL Red Cell Distribution Width 13.1 11.8-14.3 % Platelet Count 175 140-450 10^3/uL Mean Platelet Volume 8.3 6.9-10.8 fL Neutrophils (%) (Auto) 69.9 37.0-80.0 % Lymphocytes (%) (Auto) 19.7 10.0-50.0 % Monocytes (%) (Auto) 9.7 0.0-12.0 % Eosinophils (%) (Auto) 0.3 0.0-7.0 % Basophils (%) (Auto) 0.4 0.0-2.0 % Neutrophils # (Auto) 3.2 1.6-8.6 10 ^3/uL Lymphocytes # (Auto) 0.9 0.4-5.4 10 ^3/uL Monocytes # (Auto) 0.4 0-1.3 10 ^3/uL Eosinophils # (Auto) 0 0-0.8 10 ^3/uL Basophils # (Auto) 0 0-0.2 10 ^3/uL Nucleated Red Blood Cells 0.2 % Sodium Level 140 136-145 mmol/L Potassium Level 3.7 3.5-5.1 mmol/L Chloride Level 103 98-107 mmol/L Carbon Dioxide Level 30 20-31 mmol/L Anion Gap 7 5-15 Blood Urea Nitrogen 7 L 9-23 mg/dL Creatinine 1.03 0.700-1.30 mg/dL Glomerular Filtration Rate Calc 96 >90 mL/min BUN/Creatinine Ratio 6.8 L 10.0-20.0 Serum Glucose 90 74-106 mg/dL Calcium Level 10.0 8.7-10.4 mg/dL Assessment/Plan Assessment/Plan 39-year-old male with CAD, AAA repair, and costochondritis history presenting with abdominal discomfort, chest wall pain, and constipation. acute Abdominal Pain Epigastric discomfort near prior surgical site No peritoneal signs; CT A/P negative Plan: Admit for observation and pain management Monitor abdominal exam Hold oral intake initially, advance as tolerated Consider GI consult if pain persists acute Chest Wall Pain / Costochondritis Exacerbated by movement, relieved with rest History of similar presentation in November 2024 No cardiac etiology on workup Plan: NSAIDs or acetaminophen for musculoskeletal pain Lidocaine patch PRN Heat compresses and activity modification Reassess to confirm improvement acute Constipation Large bowel movement today after MiraLAX No signs of obstruction on imaging Plan: Continue MiraLAX or docusate PRN Encourage hydration and mobility High-fiber diet when tolerated acute Coronary Artery Disease (CAD) Three sets of negative troponins today No active ischemic chest pain Plan: Continue cardiac monitoring Resume home aspirin/statin/beta-hudson if applicable Cardiology follow-up if symptoms worsen acute Abdominal Aortic Aneurysm (status post repair) No acute findings on CT Pain not vascular in nature Plan: Monitor BP No vascular consult needed at this time unless new findings arise Problem List Coronary artery disease History of AAA repair Status post PTCA and femoral bypass FEN / PROPHYLAXIS (PPx) Fluids/Electrolytes/Nutrition IV fluids as needed Advance to regular diet as tolerated DVT Prophylaxis Sequential compression devices Pharmacologic PPx if immobile >24 hrs GI Prophylaxis Pantoprazole 40 mg IV daily DISPOSITION Admit to medicine for symptom management and monitoring. Continue pain control, encourage bowel regimen, and reassess for improvement or need for further GI or cardiology evaluation. Plan discussed with: Patient Date of Service: January 28, 2025 Billing Provider: INA RUIZ DNP Common Visit Codes: 12317-[id number] INP/OBS CARE (HIGH) INA RUIZ DNP January 28, 2025 14:36
[2025-01-28] MEDS ORDERED: ONDANSETRON HCL 4 MG/2 ML VIAL IV PRN (14:45)
[2025-01-28] MEDS ORDERED: SODIUM CHLORIDE 0.9% 1,000 ML IV SCH (14:45)
[2025-01-28] MEDS ORDERED: MORPHINE SULFATE INJ 2 MG/ml SYRG IV PRN (14:45)
[2025-01-28] MEDS ORDERED: NITROGLYCERIN 0.4 MG SL TAB SL PRN (14:45)
[2025-01-28] MEDS ORDERED: DOCUSATE SOD 100 MG CAP PO PRN (14:45)
[2025-01-28 15:55] LABS: Urine Bacteria FEW /hpf (None Seen); Urine Blood Negative /uL (Negative); Urine Clarity Clear (Clear); Urine Color Light-Yellow (Yellow); Urine Protein, UAD Negative (Negative); Urine Sperm PRESENT /hpf (None Seen); Urine Squamous Epithelial Cell FEW /hpf (<5); Urine Urobilinogen Normal (Negative); Urine WBC < 1 /HPF (0-3); Urine pH 6.5 (5.0-9.0)
== END 2025-01-28 14:44 | disposition left against medical advice (07) | DRG 203 ==
LOC: ER 08:39 → OVERFLOW 14:34
PROVIDERS: ADMIT Nurse Practitioner Family; ATTEND Nurse Practitioner Family
DX: M94.0 Chondrocostal junction syndrome [Tietze] (principal); F17.210 Nicotine dependence, cigarettes, uncomplicated; I25.10 Atherosclerotic heart disease of native coronary artery without angina pectoris; K59.00 Constipation, unspecified; K80.20 Calculus of gallbladder without cholecystitis without obstruction; Z53.29 Procedure and treatment not carried out because of patient's decision for other reasons; I10 Essential (primary) hypertension; Z59.82 Transportation insecurity; Z79.82 Long term (current) use of aspirin; Z83.3 Family history of diabetes mellitus; Z86.79 Personal history of other diseases of the circulatory system; Z98.61 Coronary angioplasty status; Z79.899 Other long term (current) drug therapy
CPT/HCPCS: 36415; 80048; 81001; 84484; 85025; 99291; G0378

== ENCOUNTER 2025-07-20 11:41 | Emergency (ER) | payer MEDICAID ==
[~2025-07-20] VITALS: Ht 177.8 cm; Wt 78.0 kg
[2025-07-20 12:06] VITALS: PULSE 60; RESP 12; O2SAT 97
--- NOTE | 2025-07-20 12:06 | ED.PDOC ---
HPI Comments This is a 40 year-old male, with a Hx of CHF and Aortic Aneurism, who presents to the ED via EMS with a chief complaint of L sided chest pressure as of today. Patient reports chest pain began spontaneously today, then he took his grandmothers [place] medication about X45 minutes ago. Patient reports after taking the medication, chest pressure increased, with no alleviating factors. Patient has a social history of drug abuse and MJ use. Patient has no further complaints at this time and otherwise denies dizziness, fever, chills, LOC, palpitations, or weakness. Chief Complaint: Chest Pain Time Seen by MD: 11:52 Primary Care Provider: NONE Reviewed Notes: Medications, Allergies Allergies: Coded Allergies: NO KNOWN ALLERGIES (Unverified , 05/02/21) Home Meds Active Scripts Acetaminophen (Tylenol) 325 Mg Tb, 325 MG PO QID for 10 Days, #40 TAB Prov:PEDRO COMBS MD 12/19/24 Famotidine (PEPCID TABLET) 20 Mg Tb, 1 TAB PO BID for 30 Days, #60 TAB 0 Refills Prov:PEDRO COMBS MD 12/19/24 Promethazine-Dm (Promethazine Dm 6.25-15 mg/5Ml) 1 Coreen Coreen, 5 ML PO TID, #150 ML Prov:LIANA CUBA 04/19/24 Metoclopramide Hcl (Reglan) 10 Mg Tab, 10 MG PO BID for 15 Days, #30 TAB Prov:STEPHIE COLE MD 02/09/24 Baclofen (Baclofen) 10 Mg Tab, 10 MG PO BID, #20 TAB Prov:LIANA CUBA 02/01/24 Hydrocodone-Acetaminophen (Hydrocodone Bitartrate/AC 5-325 mg) 1 Tab Tab, 1 TAB PO TID PRN, #25 TAB Prov:ISHMAEL GALINDO 12/25/23 Reported Medications Methocarbamol (Methocarbamol) 750 Mg Tab, 2 TAB PO Q6HPRN PRN for muscle spasm 12/18/24 Aspirin (Aspir-Low) 81 Mg Tab, 81 MG PO DAILY for 30 Days, MG 12/18/24 Cyclobenzaprine HCl (Cyclobenzaprine Hydrochlo) 10 Mg Tab, 1 TAB PO TID PRN for muscle pain 12/18/24 Amlodipine Besylate (Amlodipine Besylate) 5 Mg Tab, 1 TAB PO DAILY 12/18/24 Information Source: Patient, Emergency Med Personnel Mode of Arrival: EMS Severity: Moderate Timing: Minutes Duration: Since onset Location: Chest (L) Radiation: No Radiation Onset: At Rest, With Light Exertion, With Heavy Exertion Past Medical History PAST MEDICAL HISTORY: CAD, Gallstones, HTN Surgical History: PTCA Family History Family History: Family hx of DM, Family hx of Cancer, Family hx of heart jhonatan Social History Smoker: Cigarettes Alcohol: Denies ETOH Use Drugs: Cocaine, Marijuana Lives In: Home Constitutional: denies: chills, diaphoresis, fatigue, fever, malaise, sweats, weakness, others EENTM: denies: blurred vision, double vision, ear bleeding, ear discharge, ear drainage, ear pain, ear ringing, eye pain, eye redness, hearing loss, mouth pa in, mouth swelling, nasal discharge, nose bleeding, nose congestion, nose pain, photophobia, tearing, throat pain, throat swelling, voice changes, others Respiratory: denies: cough, hemoptysis, orthopnea, SOB at rest, shortness of breath, SOB with excertion, stridor, wheezing, others Cardiovascular: reports: chest pain; denies: dizzy spells, diaphoresis, Dyspnea on exertion, edema, irregular heart beat, left arm pain, lightheadedness, palpitations, PND, syncope, others Gastrointestinal: denies: abdomen distended, abdominal pain, blood streaked bow els, constipated, diarrhea, dysphagia, difficulty swallowing, hematemesis, melena, nausea, poor appetite, poor fluid intake, rectal bleeding, rectal pain, vomiting, others Genitourinary: denies: burning, dysuria, flank pain, frequency, hematuria, incontinence, penile discharge, penile sore, pain, testicle pain, testicle swelling, urgency, others Neurological: denies: dizziness, fainting, headache, left sided numbness, left sided weakness, numbness, paresthesia, pre-existing deficit, right sided numbness, right sided weakness, seizure, speech problems, tingling, tremors, weakness, others Musculoskeletal: denies: back pain, gout, joint pain, joint swelling, muscle pain, muscle stiffness, neck pain, others Integumetry: denies: bruises, change in color, change in hair/nails, dryness, laceration, lesions, lumps, rash, wounds, others Allergic/Immunocompromised: denies: Difficulty Healing, Frequent Infections, Hives, Itching, others Hematologic/Lymphatic: denies: anemia, blood clots, easy bleeding, easy bruising, swollen glands, others Endocrine: denies: excessive hunger, excessive sweating, excessive thirst, excessive urination, flushing, intolerance to cold, intolerance to heat, unexplained weight gain, unexplained weight loss, others Psychiatric: denies: anxiety, bipolar disorder, depression, hopeless, panic disorder, schizophrenia, sleepless, suicidal, others All Other Systems: Reviewed and Negative Physical Exam General Appearance: Moderate Distress HEENT: Normal ENT Inspection, Pharynx Normal, TMs Normal Neck: Full Range of Motion, Non-Tender, Normal, Normal Inspection Respiratory: Chest Non-Tender, Lungs Clear, No Accessory Muscle Use, No Respiratory Distress, Normal Breath Sounds Cardiovascular: No Edema, No JVD, No Murmur, No Gallop, Normal Peripheral Pulses, Regular Rate/Rhythm Breast Exam: Deferred Gastrointestinal: No Organomegaly, Non Tender, No Pulsatile Mass, Normal Bowel Sounds, Soft Genitalia: Deferred Pelvic: Deferred Rectal: Deferred Extremities: No calf tenderness, Normal capillary refill, Normal inspection, Normal range of motion, Non-tender, No pedal edema Musculoskeletal : Apperance: Normal Neurologic: Alert, software developer mid level II-XII nml as Tested, No Motor Deficits, Normal Affect, Normal Mood, No Sensory Deficits Cerebellar Function: Normal Reflexes: Normal Skin: Dry, Normal Color, Warm Peripheral Pulses: 3+ Radial (R), 3+ Radial (L) Lymphatic: No Adenopathy EKG EKG : Pulse Rate (adult): 64 [place]: Normal Cardiac Rhythm: NSR Block: None Hypertrophy: None ST: Normal Was a procedure done? Was a procedure done?: No CP Differential Dx Differential Diagnosis: A-fib, A-Flutter, Angina, Anxiety / Panic Attack, Atrial Dysrhythmia, Electrolyte Disorder Differential Diagnosis: CHF, HTN Essential Differential Diagnosis: Angina, Aortic dissection, Chest Wall Pain X-Ray, Labs, Meds, VS Vital Signs Date Time Temp Pulse Resp B/P (MAP) Pulse Ox O2 Delivery O2 Flow Rate FiO2 07/20/25 13:41 56 07/20/25 12:06 60 12 97 Room Air* 0 21 07/20/25 12:06 64 07/20/25 12:05 97.9 61 13 115/85 (95) 97 97.9 07/20/25 12:00 60 07/20/25 11:47 64 07/20/25 11:41 98.3 61 18 126/77 98 98.3 Lab Test 07/20/25 13:08 07/20/25 12:03 Range/Units Troponin I High Sensitivity 3 L < 3 L </=54 ng/L Sodium Level 138 136-145 mmol/L Potassium Level 3.8 3.5-5.1 mmol/L Chloride Level 102 98-107 mmol/L Carbon Dioxide Level 29 20-31 mmol/L Anion Gap 7 5-15 Blood Urea Nitrogen 8 L 9-23 mg/dL Creatinine 1.07 0.700-1.30 mg/dL Glomerular Filtration Rate Calc 91 >90 mL/min BUN/Creatinine Ratio 7.5 L 10.0-20.0 Serum Glucose 92 74-106 mg/dL Calcium Level 8.9 8.7-10.4 mg/dL Patient alert. Vitals stable. No sign of any distress. Answering questions. Abdomen is soft nontender. Cardiac marker within normal limits. Heart rate within normal limits. Saturation pristine. No sign of distress. Blood pressure equal on both arms. Explained to the patient. Was told to follow up with his primary care physician. Was told to come back if there is any problem. Time of 1ST Reevaluation: 12:50 Reevaluation 1ST: Improved Patient Education/Counseling: Diagnosis, Treatment Family Education/Counseling: No Family Present SEPSIS Sepsis Screen Date sepsis recognized/suspect: Jul 20, 2025 Time Sepsis recognized/suspect: 1158 Recent Procedure: No On Antibiotic Therapy: No Respiratory Rate >20: No Heart Rate >90: No Temp<36 C (96.8 F) or >38.3 C: No SBP <90 or MAP <65 mmHG: No New Acute Mental Status Change: No Is the patient on CPAP, BIPAP,: No Physician Orders Electrocardigram (07/20/25 16:15) Vital Signs Date Time Temp Pulse Resp B/P (MAP) Pulse Ox O2 Delivery O2 Flow Rate FiO2 07/20/25 13:41 56 07/20/25 12:06 60 12 97 Room Air* 0 21 07/20/25 12:06 64 07/20/25 12:05 97.9 61 13 115/85 (95) 97 97.9 07/20/25 12:00 60 07/20/25 11:47 64 07/20/25 11:41 98.3 61 18 126/77 98 98.3 Departure 1 Departure Time of Disposition: 14:03 Impression: Primary Impression: Musculoskeletal chest pain Disposition: HOME / SELF CARE / HOMELESS Condition: Good Discharged With: Self Critical Care Note Critical Care Time?: No Stability Stability form required: No Heart Score Heart Score: Heart Score Response (Comments) Value History Slightly Suspicious 0 EKG Normal 0 Age <45 0 Risk Factors 1 or 2 risk factors 1 Troponin Normal limit 0 Total 1 I personally scribed for MARLY CARRERO MD ([email or web address]) on 07/20/25 at 12:06. Electronically submitted by Anastasiia Restrepo ([employer]). I personally scribed for MARLY CARRERO MD ([email or web address]) on 07/20/25 at 12:25. Electronically submitted by Anastasiia Restrepo ([employer]). I personally scribed for MARLY CARRERO MD ([email or web address]) on 07/20/25 at 13:01. Electronically submitted by Anastasiia Restrepo ([employer]). MARLY CARRERO MD Jul 20, 2025 12:06
[2025-07-20 12:24] LABS: Chloride 102 mmol/L (98-107); Potassium 3.8 mmol/L (3.5-5.1); Sodium 138 mmol/L (136-145)
[2025-07-20 12:25] LABS: Anion Gap 7 (5-15); Calcium 8.9 mg/dL (8.7-10.4); Carbon Dioxide 29 mmol/L (20-31)
[2025-07-20 12:30] LABS: Glucose 92 mg/dL (74-106)
[2025-07-20 12:31] LABS: BUN/Creatinine Ratio 7.5 (10.0-20.0)
[2025-07-20 13:08] LABS: Blood Urea Nitrogen 8 mg/dL (9-23)
--- NOTE | 2025-07-20 13:17 | ECG ---
[facility] Test Date: 2025-07-20 Test Time: 11:47:15 Pat Name: MICHAEL PATEL Department: [facility] ED Patient ID: [id number] Room: Gender: M District Adviser: ZULMA : 1985 Requested By: MARLY CARRERO Order Number: [id number] Reading MD: Javid Graham Measurements Intervals [place] Rate: 64 P: 30 AR: 167 QRS: 19 QRSD: 101 T: -15 QT: 396 QTc: 409 Interpretive Statements Sinus rhythm Abnormal R-wave progression, early transition Borderline T abnormalities, inferior leads Electronically Signed On 07-21-2025 15:14:59 PDT by Javid Graham Please click the below link to view image of tracing.
[2025-07-20 13:19] VITALS: BP 115/81; PULSE 63; RESP 14; TEMP 98.1; O2SAT 97
[2025-07-20 13:41] VITALS: PULSE 56
--- NOTE | 2025-07-20 13:42 | ECG ---
[facility] Test Date: 2025-07-20 Test Time: 13:41:58 Pat Name: MICHAEL PATEL Department: [facility] ED Patient ID: [facility]-[id number] Room: Gender: M Project Development Coordinator: gp : 1985 Requested By: MARLY CARRERO Order Number: [id number] Reading MD: Javid Graham Measurements Intervals [place] Rate: 56 P: 37 DC: 161 QRS: 24 QRSD: 99 T: -13 QT: 430 QTc: 416 Interpretive Statements Sinus rhythm Borderline T abnormalities, inferior leads Electronically Signed On 07-21-2025 15:16:54 PDT by Javid Graham Please click the below link to view image of tracing.
== END 2025-07-20 14:35 | disposition home or self-care (01) ==
LOC: EDBD 11:41 → EDUNIT# 11:41 → ER 11:44
DX: R07.89 Other chest pain (principal); F17.210 Nicotine dependence, cigarettes, uncomplicated; F12.90 Cannabis use, unspecified, uncomplicated; F19.11 Other psychoactive substance abuse, in remission; I11.0 Hypertensive heart disease with heart failure; I50.9 Heart failure, unspecified; I25.10 Atherosclerotic heart disease of native coronary artery without angina pectoris; Z79.899 Other long term (current) drug therapy; Z79.82 Long term (current) use of aspirin
CPT/HCPCS: 36415; 80048; 84484; 93005